=== PATIENT | female | born 1980 | race African-American/Black ===

== ENCOUNTER 2016-08-22 01:43 | Emergency (ER) | payer OTHER ==
[2016-08-22] MEDS ORDERED: ACETAMINOPHEN 500 MG TABLET (FP) PO ONE (02:13)
--- NOTE | 2016-08-22 02:13 | PDOC ---
History of Present Illness - General History Source: Patient Exam Limitations: No Limitations - History of Present Illness Initial Comments: 08/22/16 03:05 The patient is a 36 year old female (2 months ) with significant past medical history of anxiety, hypertension, hyperlipidemia, anemia, asthma, lupus and fibromyalgia, muscle spasms, RA who presents to the ED with s/p slip and fall few hours prior to arrival. Patient reports she was in the shower around 10pm, when she slip and fell, landing on her left side. She has complaints of left arm and left hip pain. She denies head trauma and LOC. Just prior to presentation, she felt something wet and when she checked, she noted that she was bleeding. Patient wiped again and noted to be bleeding more with a small blot clot. Patient reports some mild abdominal cramping. She denies nausea , vomiting, and diarrhea. She has an appointment with her [facility] at 10am in the morning. The patient denies fever, chills, cough, SOB, chest pain, and palpitations. Allergies: ibuprofen, penicillins, IVP DYE Social History: No alcohol, tobacco, or drug use reported. Past Surgical History: 2 c-sections, ovarian cysts removal, otoscopic right knee surgery PCP: Dr. Erlin Zuniga <Rosanna Pickard - Last Filed: 08/22/16 03:05> - General History Source: Patient <Kieran Ramsay - Last Filed: 08/22/16 19:19> - General Chief Complaint: Injury Stated Complaint: FALL Time Seen by Provider: 08/22/16 02:13 Past History <Rosanna Pickard - Last Filed: 08/22/16 03:05> - Past Medical History Anemia: Yes Asthma: Yes Cancer: No Cardiac Disorders: No CVA: No COPD: No CHF: No Dementia: No Diabetes: No GI Disorders: No Disorders: No HTN: Yes Hypercholesterolemia: No Liver Disease: No Suicide Attempt (Hx): No Seizures: No Thyroid Disease: No Other medical history: lupus RA fibromylia - Surgical History Abdominal Surgery: Yes (laproscopy) Appendectomy: No Cardiac Surgery: No Cholecystectomy: No Lung Surgery: No Neurologic Surgery: No Orthopedic Surgery: No - Family Disease History Family Disease History: Heart Disease: Grandparents, Father - Reproductive History (#): 5 Para: 2 Cervical CA: No Dysfunctional Uterine Bleeding: No Ectopic : No Endometrial CA: No Polycystic Ovaries: No Therapeutic (s) & number: No Tubal Ligation: No Spontaneous : 3 - Immunization History Td Vaccination: Yes Immunization Up to Date: Yes - Psycho/Social/Smoking Cessation Hx Anxiety: Yes Suicidal Ideation: No Smoking Status: Yes Smoking History: Never smoked Years of Tobacco Use: 15 Have you smoked in the past 12 months: Yes Number of Cigarettes Smoked Daily: 0 If you are a former smoker, when did you quit?: PT REFUSED BOOKLET Cigars Per Day: 0 Information on smoking cessation initiated: No 'Breaking Loose' booklet given: 03/13/15 Hx Alcohol Use: No Drug/Substance Use Hx: No Substance Use Type: None Hx Substance Use Treatment: No <Kieran Ramsay - Last Filed: 08/22/16 19:19> - Past Medical History Allergies/Adverse Reactions: Allergies Allergy/AdvReac Type Severity Reaction Status Date / Time ibuprofen Allergy Mild abd pain, Verified 08/22/16 01:47 vomitting Shellfish AdvReac Intermediate Nausea Verified 08/22/16 01:47 Penicillins AdvReac Mild Vomiting Verified 08/22/16 01:47 BEE STING Allergy SWELLING, Uncoded 08/22/16 01:47 RASH, ITCHING, CHILLS IVP DYE Allergy Uncoded 08/22/16 01:47 SEASALT Allergy Hives Uncoded 08/22/16 01:47 Home Medications: Ambulatory Orders Hydroxychloroquine So4 [Plaquenil -] 200 mg PO DAILY 03/14/15 Review of Systems - Review of Systems Able to Perform ROS?: Yes Comments:: 08/22/16 03:05 CONSTITUTIONAL: Absent: fever, no chills, no fatigue EYES: Absent: visual changes ENT: Absent: ear pain, no sore throat CARDIOVASCULAR: Absent: chest pain, no palpitations RESPIRATORY: Absent: cough, no SOB GI: +abdominal cramping Absent: no nausea, no vomiting, no constipation, no diarrhea GENITOURINARY: +vaginal bleeding Absent: dysuria, no frequency, no hematuria MUSCULOSKELETAL: +left arm pain, left hip pain SKIN: Absent: rash NEURO: Absent: headache <BharratRosnana - Last Filed: 08/22/16 03:05> *Physical Exam - Vital Signs Last Vital Signs Temp Pulse Resp BP Pulse Ox 98.6 F 86 20 122/69 100 08/22/16 01:47 08/22/16 01:47 08/22/16 01:47 08/22/16 01:47 08/22/16 01:47 - Physical Exam Comments: 08/22/16 03:06 GENERAL: Well-appearing, well-nourished. No apparent distress. HEENT: Normocephalic, atraumatic. No racoon or schwartz sign. PERRL, EOM intact. No hemotympanum. CARDIOVASCULAR: Normal S1, S2. Regular rate and rhythm. PULMONARY: Clear to auscultation bilaterally. ABDOMEN: Soft, obese, non-tender. No guarding or rebound. PELVIC: Deferred to ultrasound, which revealed One live IUP 8 weeks 1 day. heart tone is 176bpm. EXTREMITIES: Normal ROM in all four extremities. No gross deformities. MUSCULOSKELETAL: No bony deformities of left hip. SKIN: Warm, dry. No rash NEUROLOGICAL: No focal neurological deficits. <Rosanna Pickard - Last Filed: 08/22/16 03:05> - Vital Signs Last Vital Signs Temp Pulse Resp BP Pulse Ox 98.6 F 86 20 122/69 100 08/22/16 01:47 08/22/16 01:47 08/22/16 01:47 08/22/16 01:47 08/22/16 01:47 <Kieran Ramsay - Last Filed: 08/22/16 19:19> ED Treatment Course - LABORATORY CBC & Chemistry Diagram: 08/22/16 02:10 08/22/16 02:10 - ADDITIONAL ORDERS Additional order review: 08/22/16 02:10 RBC 4.17 MCV 91.9 MCHC 32.5 RDW 13.5 MPV 7.5 Neutrophils % 74.6 D Lymphocytes % 18.1 D Monocytes % 5.9 Eosinophils % 0.7 Basophils % 0.7 - Medications Given in the ED: ED Medications Discontinued Medications Generic Name Dose Route Start Last Admin Trade Name Freq PRN Reason Stop Dose Admin Acetaminophen 1,000 mg 08/22/16 02:13 08/22/16 02:24 Tylenol - PO 08/22/16 02:14 1,000 mg ONCE ONE Administration <Rosanna Pickard - Last Filed: 08/22/16 03:05> - LABORATORY CBC & Chemistry Diagram: 08/22/16 02:10 08/22/16 02:10 - RADIOLOGY Radiology Studies Ordered: Category Date Time Status <14WKS US [US] Stat Ultrasound 08/22/16 01:49 Taken <Kieran Ramsay - Last Filed: 08/22/16 19:19> Medical Decision Making - Medical Decision Making 08/22/16 03:17 Dr. Ramsay: The scribe's documentation has been prepared under my direction and personally reviewed by me in its entirery. I confirm that the note above accurately reflects all work, treatment, procedures, and medical decision making performed by me. Patient is s/p fall in shower last night. Pt c/o left hip pain and lower abd cramping. pt approx 8 weeks. US shows IUP at 8 weeks. good fht. Pt to be discharged <Kieran Ramsay - Last Filed: 08/22/16 19:19> *DC/Admit/Observation/Transfer - Attestations Scribe Attestion: 08/22/16 03:06 Documentation prepared by Rosanna Pickard, acting as medical device for Kieran Ramsay MD <Rosanna Pickard - Last Filed: 08/22/16 03:05> - Discharge Dispostion Admit: No <Kieran Ramsay - Last Filed: 08/22/16 19:19> Diagnosis at time of Disposition: Fall Qualifiers: Encounter type: initial encounter Qualified Code(s): W19.XXXA - Unspecified fall, initial encounter Contusion of left hip Qualifiers: Encounter type: initial encounter Qualified Code(s): S70.02XA - Contusion of left hip, initial encounter - Discharge Dispostion Disposition: HOME Condition at time of disposition: Stable - Referrals Referrals: Erlin Zuniga MD [Primary Care Provider] - - Patient Instructions Printed Discharge Instructions: DI for Contusion, How to Prevent Falls Additional Instructions: Please follow up with your normal scheduled appointment today. Rest and ice area of injury. Tylenol for pain every 6 hours
[2016-08-22 02:20] LABS: BASOPHIL 0.7 % (0-2.0); EOSINOPHIL 0.7 % (0-4.5); MCH 29.9 pg (25.7-33.7); MCHC 32.5 g/dl (32.0-36.0); MEAN CELL VOLUME 91.9 fl (80-96); MEAN PLT VOLUME 7.5 fl (7.5-11.1); NEUTROPHILS 74.6 % (42.8-82.8); PLATELET COUNT 377 K/MM3 (134-434); RDW 13.5 % (11.6-15.6); WHITE BLOOD COUNT 16.1 K/mm3 (4.0-10.0)
[2016-08-22] MEDS ORDERED: ACETAMINOPHEN 325 MG TABLET (FP) ONE (02:25)
[2016-08-22 02:47] VITALS: BP 122/69; PULSE 86; TEMP 98.6; BMI 41.8
[2016-08-22 02:50] LABS: ANION GAP 8 (8-16); BILIRUBIN,TOTAL 0.3 mg/dL (0.2-1.0); CALCIUM 8.7 mg/dL (8.5-10.1); CO2 25 mmol/L (21-32); CREATININE 0.5 mg/dL (0.55-1.02); GLUCOSE,RANDOM 98 mg/dL (74-106); SGOT/AST 11 U/L (15-37); SGPT/ALT 17 U/L (12-78); TOT PROT 6.3 g/dl (6.4-8.2)
[2016-08-22 03:07] LABS: ALK PHOS 90 U/L (45-117)
== END 2016-08-22 03:31 | disposition home or self-care (01) ==
LOC: JER 01:43
DX: O99.89 Other specified diseases and conditions complicating pregnancy, childbirth and the puerperium (principal); S70.02XA Contusion of left hip, initial encounter; W16.212A Fall in (into) filled bathtub causing other injury, initial encounter; Y93.E1 Activity, personal bathing and showering; Y92.031 Bathroom in apartment as the place of occurrence of the external cause; Z3A.00 Weeks of gestation of pregnancy not specified
CPT/HCPCS: 36415; 76801-TC; 80053; 84702; 85025; 86850; 86870; 86900; 86901; 86902; 99281-25

== ENCOUNTER 2018-01-03 14:15 | Emergency (ER) | payer OTHER ==
[2018-01-03 14:31] VITALS: BMI 44.9
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
--- NOTE | 2018-01-03 15:23 | PDOC ---
Attending Attestation - Resident Resident Name: Valentin White - ED Attending Attestation I have performed the following: I have examined & evaluated the patient, The case was reviewed & discussed with the resident, I agree w/resident's findings & plan, Exceptions are as noted - HPI HPI: 01/03/18 15:07 37y F hx of fibromyalgia htn, presents with complaint of R shoulder pain. Pt states she fell 2 weeks ago due to a mechanical fall, struck her R arm on the wall, she has been having pain since. pt denies any numbness/tingling/weakness , neck pain, fever/chills, cp, sob, palpitations. on exam pt has mildly tender L shoulder with pain on active ROM but minimal on passive ROM suspect the pts sypmsm secondary to contusion/possibly burstitis will give percocet, will ck shoulder xray anticipate pmd fu return precautions were discussed - Physicial Exam PE: 01/03/18 16:18 see above - Medical Decision Making 01/03/18 16:18 shoulder xray negative will dc with pm dfu return precautions were discussed 01/03/18 16:38 pt changed her pharmacy - originally sent to [facility], then called and spoke to [facility] who cancelled rx, then pt mentioned [facility] [address], rx sent there was cancelled. and finally sent to [facility]
[2018-01-03 16:55] VITALS: BP 130/85; PULSE 82; TEMP 98.3
== END 2018-01-03 16:55 | disposition home or self-care (01) ==
LOC: JER 14:15
DX: M25.511 Pain in right shoulder (principal); M54.6 Pain in thoracic spine; W03.XXXA Other fall on same level due to collision with another person, initial encounter; Y93.89 Activity, other specified; Y92.038 Other place in apartment as the place of occurrence of the external cause; Y99.8 Other external cause status; Y07.01 Husband, perpetrator of maltreatment and neglect; I10 Essential (primary) hypertension; E78.5 Hyperlipidemia, unspecified; E78.00 Pure hypercholesterolemia, unspecified; M32.9 Systemic lupus erythematosus, unspecified; M79.7 Fibromyalgia; F17.210 Nicotine dependence, cigarettes, uncomplicated
CPT/HCPCS: 73030-TC-RT-FY; 99283-25

== ENCOUNTER 2020-03-04 11:41 | Inpatient (IN) | payer OTHER ==
--- NOTE | 2020-03-04 12:35 | BHS.RME ---
Substance Use & Tx History - Substance Use History Heroin Substance amount: 1-2 bags Frequency of use: Daily Substance route: Inhalation (ex: sniffing or snorting) Date of Last Use: 03/03/20 Cocaine-Crack Substance amount: $30-40 Frequency of use: Daily Substance route: Smoking Date of Last Use: 03/03/20 Nicotine Substance amount: 1/2 pack Frequency of use: Daily Substance route: Smoking Date of Last Use: 03/04/20 Physical/Psych/Mental Status - Behavior General Behavior: Increased activity (restlessness, agitation) Eye Contact: Normal - Cooperativeness Cooperativeness: Cooperative - Thinking Thought Processes: Tight, Logical, Goal Directed - Physical Health Problems Is patient presently having any pain?: No Does patient presently have any injuries (include location): No Does patient currently have a fever: No Is patient : No COWS - Scale Resting Pulse: 0= [place] 80 or Below Sweatin= Chills/Flushing Restless Observation: 1= Difficult to Sit Still Pupil Size: 1= Pupils >than Normal Bone or Joint Aches: 2= Severe Diffuse Aches Runny Nose/ Eye Tearin= None GI Upset > 30mins: 2= Nausea/Diarrhea Tremor Observation: 1= Tremor Nichols, Not Seen Yawning Observation: 1= 1-2x During Session Anxiety or Irritability: 1=Feels Anxious/Irritable Goose Flesh Skin: 3=Piloerection COWS Score: 13
--- NOTE | 2020-03-04 14:46 | HP ---
COWS - Scale Resting Pulse: 0= MT 80 or Below Sweatin= No chills or Flushing Restless Observation: 1= Difficult to Sit Still Pupil Size: 0= Normal to Room Light Bone or Joint Aches: 4=Acute Joint/Muscle Pain Runny Nose/ Eye Tearin= Nasal Congestion GI Upset > 30mins: 2= Nausea/Diarrhea Tremor Observation: 0= None Yawning Observation: 1= 1-2x During Session Anxiety or Irritability: 2=Irritable/Anxious Goose Flesh Skin: 3=Piloerection COWS Score: 14 CIWA Score - Admission Criteria OASAS Guidelines: Admission for Medically Managed Detox: Requires at least one of the followin. CIWA greater than 12 2. Seizures within the past 24 hours 3. Delirium tremens within the past 24 hours 4. Hallucinations within the past 24 hours 5. Acute intervention needed for co occurring medical disorder 6. Acute intervention needed for co occurring psychiatric disorder 7. Severe withdrawal that cannot be handled at a lower level of care (continued vomiting, continued diarrhea, abnormal vital signs) requiring intravenous medication and/or fluids 8. Admitting History and Physical - Admission Chief Complaint: " I want to get clean from heroin." History of Present Illness: Patient is a 40 y/o F who presents to [facility] for detox from Heroin. Patient endorses she uses 1-2 bags of heroin per day. Age of first use was 39 years old. She snorts the heroin. Last use was 1 am this morning. Also uses crack cocaine 60 dollars worth daily. Last use of crack was also 1 am. Furthermore, patient states she drinks ~ two 12 oz beers daily along with 1 nip of hard liquor. Of note, patient endorses she took " half a pill" of her friend's suboxone to help her wean off of heroin. PMH Fibromyalgia, SLE, RA, HTN, Bursitis (R and L knee, and shoulders), DVT s/p C Section. SocialHx- Heroin use per HPI. Also drinks two 12 oz beers and 1 nip daily. 60 dollars of crack per day, smokes 10 cigarettes daily. 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: No: Alzheimer's, CVA, Dementia, Migraine, Multiple Sclerosis, Peripheral Neuropathy, Parkinson's, Seizure, Syncope, TIA, Vertigo, Other Cardiovascular: Yes: HTN Pulmonary: Yes: COPD Gastrointestinal: No: Ascites, Cancer, Constipation, Crohn's Disease, Diverticulosis, Esophageal Varices Hepatobiliary: No: Cirrhosis, Cholecystitis, Hepatitis A, Hepatitis B, Hepatitis C Renal/: No: Renal Failure, Renal Inusuff, BPH, Cancer, Hematuria, Hemodialysis, Neurogenic Bladder, Renal Calculi, UTI, Other Reproductive: No: Ectopic , Endometriosis, Fibroids, PID, Polycystic Ovary Syndrome, Postmenopausal, Other ...LMP: 12/07/13 Heme/Onc: Yes: Anemia Infectious Disease: No: AIDS, HIV Psych: Yes: Anxiety, Depression, Other (PTSD) Musculoskeletal: Yes: Bursitis (2 shoulders and both knees) Rheumatology: Yes: Lupus, Rheumatoid Arthritis Endocrine: No: Diabetes Insipidus, Diabetes Mellitus, Hyperthyroidism, Hypothyroidism - Past Surgical History Additional Past Surgical History: Ovarian cystectomy, Right knee arthroscopy, " surgery for cyst on tailbone", 3 C Sections. - Smoking History Smoking history: Current every day smoker Have you smoked in the past 12 months: Yes Aproximately how many cigarettes per day: 10 - Alcohol/Substance Use Hx Alcohol Use: Yes History of Substance Use: reports: Heroin Admission [facility] Allergies/Adverse Reactions: Allergies Allergy/AdvReac Type Severity Reaction Status Date / Time ibuprofen Allergy Mild abd pain, Verified 03/04/20 16:21 vomitting Shellfish AdvReac Intermediate Nausea Verified 03/04/20 16:21 Penicillins AdvReac Mild Vomiting Verified 03/04/20 16:21 BEE STING Allergy SWELLING, Uncoded 03/04/20 16:21 RASH, ITCHING, CHILLS IVP DYE Allergy Uncoded 03/04/20 16:21 SEASALT Allergy Hives Uncoded 03/04/20 16:21 - Ebola screening Have you traveled outside of the country in the last 21 days: No Have you had contact with anyone from an Ebola affected area: No Have you been sick,other than usual withdrawal symptoms: No Do you have a fever: No - Review of Systems Constitutional: No Symptoms Reported EENT: reports: Blurred Vision. denies: Double Vision, Eye Pain, Recent change in vision, Ear Pain, Hearing Loss Respiratory: denies: Cough, Orthopnea, Shortness of Breath, SOB with Exertion, Wheezing Cardiac: denies: Chest Pain, Lightheadedness, Palpitations, Syncope GI: denies: Abdominal Distended, Abd. Pain w/ defecation, Blood Streaked Bowels, Constipated, Diarrhea : denies: Burning, Dysuria, Discharge, Hematuria Musculoskeletal: reports: Back Pain, Joint Pain Integumentary: denies: Bruising Neuro: denies: Numbness, Paresthesia, Seizure, Tingling, Tremors Endocrine: denies: Excessive Sweating, Intolerance to Cold, Intolerance to Heat Hematology: reports: Anemia Psychiatric: reports: Orientated x3 Patient History - Patient Medical History Hx Anemia: Yes Hx Asthma: Yes Hx Chronic Obstructive Pulmonary Disease (COPD): No Hx Cancer: No Hx Cardiac Disorders: No Hx Congestive Heart Failure: No Hx Hypertension: Yes Hx Hypercholesterolemia: No Hx Pacemaker: No HX Cerebrovascular Accident: No Hx Seizures: No Hx Dementia: No Hx Diabetes: No Hx Gastrointestinal Disorders: No Hx Liver Disease: No Hx Genitourinary Disorders: No Hx Renal Disease (ESRD): No Hx Thyroid Disease: No Hx Human Immunodeficiency Virus (HIV): No Hx Hepatitis C: No Hx Depression: Yes Hx Suicide Attempt: No - Patient Surgical History Past Surgical History: Yes Hx Neurologic Surgery: No Hx Cataract Extraction: No Hx Cardiac Surgery: No Hx Lung Surgery: No Hx Breast Surgery: No Hx Breast Biopsy: No Hx Abdominal Surgery: Yes (laproscopy) Hx Appendectomy: No Hx Cholecystectomy: No Hx Genitourinary Surgery: No Hx Section: Yes (x2) Hx Orthopedic Surgery: No Hx Hysterectomy: No Anesthesia Reaction: No - Reproductive History Last Menstrual Period: 12/07/13 - Smoking Cessation Smoking history: Current every day smoker Have you smoked in the past 12 months: Yes Aproximately how many cigarettes per day: 10 Cigars Per Day: 0 Hx Chewing Tobacco Use: No Initiated information on smoking cessation: Yes 'Breaking Loose' booklet given: 03/04/20 - Substances abused Cocaine Substance route: Smoking Frequency: 3-6 times per week Amount used: 60 dollars Age of first use: 20 Date of last use: 03/04/20 Heroin Substance route: Inhalation Frequency: Daily Amount used: 2 to 3 bags Age of first use: 39 Date of last use: 03/04/20 Admission Physical Exam [facility] - Physical General Appearance: Yes: Within Normal Limits HEENTM: Yes: EOMI, Hearing grossly Normal, Normocephalic, Normal Voice Respiratory: Yes: Within Normal Limits, Chest Non-Tender, Lungs Clear Cardiology: Yes: Regular Rhythm, Regular Rate, S1, S2 Abdominal: Yes: Within Normal Limits, Normal Bowel Sounds, Non Tender, Flat, Soft Musculoskeletal: Yes: Within Normal Limits, full range of Motion Extremities: Yes: Within Normal Limits, Normal Inspection, Non-Tender Neurological: Yes: Within Normal Limits, paper counter II-XII NML intact, Fully Oriented, Alert, Motor Strength 5/5 Integumentary: Yes: Within Normal Limits, Normal Color, Dry, Warm - Diagnostic (1) Heroin abuse Current Visit: Yes Status: Acute (2) SLE (systemic lupus erythematosus related syndrome) Current Visit: Yes Status: Chronic (3) Rheumatoid arthritis Current Visit: Yes Status: Chronic (4) PTSD (post-traumatic stress disorder) Current Visit: Yes Status: Chronic (5) HTN (hypertension) Current Visit: Yes Status: Chronic (6) Fibromyalgia Current Visit: Yes Status: Chronic (7) Alcohol abuse Current Visit: Yes Status: Acute Cleared for Admission [facility] - Detox or Rehab [facility] Level of Care: Medically Managed Detox Regimen/Protocol: Methadone Breathalyzer - Breathalyzer Breathalyzer: 0 Urine Drug Screen - Test Device Lot number: [id number] Expiration date: 04/11/21 - Control Is test valid?: Yes - Results Drug screen NEGATIVE: No Urine drug screen results: DIAMOND-Cocaine, MOP-Opiates, BZO-Benzodiazepines, BUP- Suboxone Inpatient Rehab Admission - Rehab Decision to Admit Inpatient rehab admission?: No
[2020-03-04] MEDS ORDERED: MENTHOL/PHENOL 1 EACH UD MM PRN (15:14)
[2020-03-04] MEDS ORDERED: BISMUTH SUBSALICYLATE 524 MG/30 ML UD PO PRN (15:14)
[2020-03-04] MEDS ORDERED: ACETAMINOPHEN 325 MG TABLET (FP) PO PRN ×2 (15:14)
[2020-03-04] MEDS ORDERED: MAGNESIUM HYDROX 2400MG/30ML ORAL SUSPENSION 30 ML CUP PO PRN (15:14)
[2020-03-04] MEDS ORDERED: MAG HYDROX/AL HYDROX/SIMETH 30 ML UNIT-DOSE CUP PO PRN (15:14)
[2020-03-04] MEDS ORDERED: METHOCARBAMOL 500 MG TABLET PO PRN (15:14)
[2020-03-04] MEDS ORDERED: MAGNESIUM CITRATE 300 ML BOTTLE PO PRN (15:14)
[2020-03-04] MEDS ORDERED: NICOTINE POLACRILEX 2 MG GUM BUC PRN (15:14)
[2020-03-04] MEDS ORDERED: IBUPROFEN 400 MG TABLET (FP) PO PRN (15:14)
[2020-03-04] MEDS ORDERED: ONDANSETRON *ODT* 4 MG TABLET SL ONE (15:14)
[2020-03-04] MEDS ORDERED: PRENATAL VITAMINS W/ FOLIC ACID TABLET (FP) PO SCH (15:15)
[2020-03-04] MEDS ORDERED: NICOTINE 7 MG/24 HOURS TOPICAL PATCH TD SCH (15:15)
[2020-03-04] MEDS ORDERED: METHADONE HCL 10 MG TABLET (FOR DETOX USE ONLY) PO ONE (15:19)
[2020-03-04] MEDS ORDERED: cloNIDine HCL 0.1 MG TABLET PO PRN (15:19)
[2020-03-04 16:44] VITALS: BP 129/84; PULSE 70; TEMP 97.7; BMI 39.9
[2020-03-04 16:59] LABS: HEMATOCRIT 37.8 % (32.4-45.2); HEMOGLOBIN 12.6 GM/dL (10.7-15.3); MCH 30.2 pg (25.7-33.7); MCHC 33.4 g/dl (32.0-36.0); MEAN CELL VOLUME 90.6 fl (80-96); MEAN PLT VOLUME 8.3 fl (7.5-11.1); PLATELET COUNT 360 K/MM3 (134-434); RBC 4.18 M/mm3 (3.60-5.2); RDW 14.7 % (11.6-15.6); WHITE BLOOD COUNT 8.1 K/mm3 (4.0-10.0)
[2020-03-04] MEDS ORDERED: TIZANIDINE HCL 4 MG TABLET PO PRN (17:00)
[2020-03-04 17:32] LABS: ALBUMIN 3.1 g/dl (3.4-5.0); BILIRUBIN,TOTAL 0.4 mg/dL (0.2-1); BLOOD UREA NITROGEN 10.6 mg/dL (7-18); CALCIUM 8.9 mg/dL (8.5-10.1); CREATININE 0.7 mg/dL (0.55-1.3); POTASSIUM 4.2 mmol/L (3.5-5.1); TOT PROT 6.7 g/dl (6.4-8.2)
[2020-03-04] MEDS ORDERED: hydrOXYzine PAMOATE 25 MG CAPSULE (FP) PO SCH (18:00)
--- NOTE | 2020-03-04 19:38 | DS ---
[facility] Detox Discharge Summary Admission Date: 03/04/20 Discharge Date: 03/04/20 - History Present History: Alcohol Dependence, Cocaine Dependence, Opioid Dependence Additional Comments: Patient left the unit before the provider could see/examine her. Admission should be aborted. Pertinent Past History: History of SLE, HTN, DVT, S/P , Anemia, anxiety, depression, Alcohol, Heroin, Crack and nicotine use disorder. - Physical Exam Results Vital Signs: Vital Signs Temperature 97.7 F 03/04/20 16:37 Pulse Rate 70 03/04/20 16:37 Respiratory Rate 18 03/04/20 16:37 Blood Pressure 129/84 03/04/20 16:37 O2 Sat by Pulse Oximetry (%) Vital Signs 03/04/20 16:37 Temperature 97.7 F Pulse Rate 70 Respiratory 18 Rate Blood Pressure 129/84 Laboratory Last Values WBC 8.1 K/mm3 (4.0-10.0) 03/04/20 15:00 RBC 4.18 M/mm3 (3.60-5.2) 03/04/20 15:00 Hgb 12.6 GM/dL (10.7-15.3) 03/04/20 15:00 Hct 37.8 % (32.4-45.2) 03/04/20 15:00 MCV 90.6 fl (80-96) 03/04/20 15:00 MCH 30.2 pg (25.7-33.7) 03/04/20 15:00 MCHC 33.4 g/dl (32.0-36.0) 03/04/20 15:00 RDW 14.7 % (11.6-15.6) 03/04/20 15:00 Plt Count 360 K/MM3 (134-434) 03/04/20 15:00 MPV 8.3 fl (7.5-11.1) D 03/04/20 15:00 Sodium 141 mmol/L (136-145) 03/04/20 15:00 Potassium 4.2 mmol/L (3.5-5.1) 03/04/20 15:00 Chloride 107 mmol/L (98-107) 03/04/20 15:00 Carbon Dioxide 29 mmol/L (21-32) 03/04/20 15:00 Anion Gap 5 MMOL/L (8-16) L 03/04/20 15:00 BUN 10.6 mg/dL (7-18) 03/04/20 15:00 Creatinine 0.7 mg/dL (0.55-1.3) 03/04/20 15:00 Est GFR (CKD-EPI)AfAm 124.73 03/04/20 15:00 Est GFR (CKD-EPI)NonAf 107.62 03/04/20 15:00 Random Glucose 104 mg/dL (74-106) 03/04/20 15:00 Calcium 8.9 mg/dL (8.5-10.1) 03/04/20 15:00 Total Bilirubin 0.4 mg/dL (0.2-1) 03/04/20 15:00 AST 16 U/L (15-37) 03/04/20 15:00 ALT 15 U/L (13-61) 03/04/20 15:00 Alkaline Phosphatase 91 U/L (45-117) 03/04/20 15:00 Total Protein 6.7 g/dl (6.4-8.2) 03/04/20 15:00 Albumin 3.1 g/dl (3.4-5.0) L 03/04/20 15:00 Syphilis Serology Non-reactive (NONREACTIVE) 03/04/20 15:00 Labs noted. Pertinent Admission Physical Exam Findings: Withdrawal symptoms. - Medication Discharge Medications: Ambulatory Orders RX: Hydroxychloroquine So4 [Plaquenil -] 100 mg PO BID 03/14/15 Duloxetine HCl [Cymbalta] 30 mg PO DAILY 01/03/18 Lisinopril/Hydrochlorothiazide [Lisinopril-Hctz 10-12.5 mg Tab] 1 each PO DAILY 01/03/18 RX: Tizanidine HCl 4 mg PO PRN 01/03/18 RX: oxyCODONE HCL [Oxycodone HCl] 15 mg PO TID PRN 01/03/18 - Diagnosis (1) Alcohol abuse Current Visit: Yes Status: Acute (2) Heroin abuse Current Visit: Yes Status: Acute (3) Fibromyalgia Current Visit: Yes Status: Chronic (4) HTN (hypertension) Current Visit: Yes Status: Chronic (5) SLE (systemic lupus erythematosus related syndrome) Current Visit: Yes Status: Chronic - AMA Did Patient Leave Against Medical Advice: Yes
[2020-03-04] MEDS ORDERED: THIAMINE HCL 100 MG TABLET (FP) PO SCH (22:00)
[2020-03-04] MEDS ORDERED: HYDROXYCHLOROQUINE SO4 200 MG TABLET (FP) PO SCH (22:00)
[2020-03-04] MEDS ORDERED: MELATONIN 5 MG TABLETS PO SCH (22:00)
[2020-03-05] MEDS ORDERED: METHADONE (DETOX) 20 MG, METHADONE (DETOX) 5 MG PO ONE (10:00)
[2020-03-05] MEDS ORDERED: PATIENT'S OWN MEDICATION (NON-FORMULARY) (Lisinopril/Hydrochlorothiazide [Lisinopril-Hctz PO SCH (10:00)
[2020-03-05] MEDS ORDERED: LISINOPRIL 10 MG TABLET PO SCH (10:00)
[2020-03-05] MEDS ORDERED: HYDROCHLOROTHIAZIDE 12.5 MG CAPSULE (FP) PO SCH (10:00)
[2020-03-06] MEDS ORDERED: METHADONE HCL 10 MG TABLET (FOR DETOX USE ONLY) PO ONE (10:00)
--- NOTE | 2020-03-07 08:10 | PN ---
Teaching Attending Note Name of Resident: Jovanny Van ATTENDING PHYSICIAN STATEMENT I saw and evaluated the patient. I reviewed the resident's note and discussed the case with the resident. I agree with the resident's findings and plan as documented. SUBJECTIVE: OBJECTIVE: ASSESSMENT AND PLAN: Heroin use disorder Admit for detox
[2020-03-07] MEDS ORDERED: METHADONE (DETOX) 10 MG, METHADONE (DETOX) 5 MG PO ONE (10:00)
[2020-03-08] MEDS ORDERED: METHADONE HCL 10 MG TABLET (FOR DETOX USE ONLY) PO ONE (10:00)
[2020-03-09] MEDS ORDERED: METHADONE HCL 5 MG TABLET (FOR DETOX USE ONLY) PO ONE (06:00)
== END 2020-03-04 18:08 | disposition left against medical advice (07) | DRG 770 ==
LOC: YASAS 11:41 → Y3N 15:28
PROVIDERS: ADMIT Allergy & Immunology; ATTEND Allergy & Immunology
PROC: HZ2ZZZZ Detoxification Services for Substance Abuse Treatment (ICD-10-PCS; principal; 2020-03-04)
DX: F11.23 Opioid dependence with withdrawal (principal); F10.20 Alcohol dependence, uncomplicated; F14.20 Cocaine dependence, uncomplicated; F17.210 Nicotine dependence, cigarettes, uncomplicated; F43.10 Post-traumatic stress disorder, unspecified; F41.9 Anxiety disorder, unspecified; F32.9 Major depressive disorder, single episode, unspecified; I10 Essential (primary) hypertension; J45.909 Unspecified asthma, uncomplicated; M32.9 Systemic lupus erythematosus, unspecified; M06.9 Rheumatoid arthritis, unspecified; Z91.030 Bee allergy status; Z88.0 Allergy status to penicillin; Z88.6 Allergy status to analgesic agent; Z91.041 Radiographic dye allergy status; Z91.018 Allergy to other foods; Z90.721 Acquired absence of ovaries, unilateral; Z98.890 Other specified postprocedural states
CPT/HCPCS: 36415; 80053; 81025; 85027; 86780; U0003

== ENCOUNTER 2022-09-29 20:03 | Inpatient (IN) | payer OTHER ==
[2022-09-29 20:56] VITALS: BMI 26.1
[2022-09-29] MEDS ORDERED: ACETAMINOPHEN 325 MG TABLET (FP) PO PRN (21:55)
[2022-09-29] MEDS ORDERED: MAGNESIUM HYDROX 2400MG/30ML ORAL SUSPENSION 30 ML CUP PO PRN (21:55)
[2022-09-29] MEDS ORDERED: ONDANSETRON *ODT* 4 MG TABLET SL PRN (21:55)
[2022-09-29] MEDS ORDERED: MAG HYDROX/AL HYDROX/SIMETH 30 ML UNIT-DOSE CUP PO PRN (21:55)
[2022-09-29] MEDS ORDERED: NALOXONE HCL (KLOXXADO) 8 MG SPRAY NS PRN (21:55)
[2022-09-29] MEDS ORDERED: BENZOCAINE/MENTHOL (CHLORASEPTIC ) LOZENGE MM PRN (21:55)
[2022-09-29] MEDS ORDERED: POLYETHYLENE GLYCOL (HEALTHYLAX) 3350 17 GM PACKET PO PRN (21:55)
[2022-09-29] MEDS ORDERED: DICYCLOMINE HCL 10 MG CAPSULE PO PRN (21:55)
[2022-09-29] MEDS ORDERED: LOPERAMIDE HCL 2 MG CAPSULE PO PRN (21:55)
[2022-09-29] MEDS ORDERED: MELATONIN 5 MG TABLETS PO SCH (22:00)
[2022-09-29] MEDS: THIAMINE HCL 100 MG TABLET (FP) PO SCH (22:14)
[2022-09-29] MEDS ORDERED: ACETAMINOPHEN 325 MG TABLET (FP) ONE (22:24)
[2022-09-29] MEDS: ACETAMINOPHEN 325 MG TABLET (FP) PO PRN (22:27)
[2022-09-29] MEDS: METHOCARBAMOL 500 MG TABLET PO PRN (23:14)
[2022-09-30] MEDS: ACETAMINOPHEN 325 MG TABLET (FP) PO PRN ×3 (06:59→22:52)
[2022-09-30] MEDS: METHOCARBAMOL 500 MG TABLET PO PRN ×3 (06:59→22:50)
[2022-09-30] MEDS: hydrOXYzine PAMOATE 25 MG CAPSULE (FP) PO PRN ×4 (06:59→22:49)
[2022-09-30] MEDS ORDERED: methaDONE HCL 10 MG TABLET PO ONE (10:07)
[2022-09-30] MEDS: NICOTINE 21 MG/24 HOURS TOPICAL PATCH TD SCH (10:13)
[2022-09-30] MEDS: PRENATAL VITAMINS W/ FOLIC ACID TABLET (FP) PO SCH (10:16)
[2022-09-30] MEDS: NICOTINE POLACRILEX 2 MG GUM BUC PRN ×2 (10:17→12:26)
[2022-09-30] MEDS ORDERED: MIRTAZAPINE 15 MG TABLET (FP) PO SCH (22:00)
[2022-09-30] MEDS: THIAMINE HCL 100 MG TABLET (FP) PO SCH (22:48)
[2022-10-01] MEDS: ACETAMINOPHEN 325 MG TABLET (FP) PO PRN (09:53)
[2022-10-01] MEDS: hydrOXYzine PAMOATE 25 MG CAPSULE (FP) PO PRN (09:53)
[2022-10-01] MEDS: METHOCARBAMOL 500 MG TABLET PO PRN (09:53)
[2022-10-01 09:58] VITALS: BP 120/94; PULSE 104; RESP 20; TEMP 96.9
[2022-10-01] MEDS: NICOTINE 21 MG/24 HOURS TOPICAL PATCH TD SCH (09:59)
[2022-10-01] MEDS: PRENATAL VITAMINS W/ FOLIC ACID TABLET (FP) PO SCH (09:59)
[2022-10-01 13:38] LABS: MCH 16.4 pg (25.7-33.7); MCHC 27.8 g/dl (32.0-36.0); MEAN PLT VOLUME 8.4 fl (7.5-11.1); PLATELET COUNT 492 10^3/uL (134-434); RBC 3.89 M/mm3 (3.60-5.2); RDW 20.3 % (11.6-15.6); WHITE BLOOD COUNT 6.1 K/mm3 (4.0-10.0)
[2022-10-01 13:44] LABS: HEMOGLOBIN 6.4 GM/dL (10.7-15.3)
[2022-10-01 13:55] LABS: ALBUMIN 2.5 g/dl (3.4-5.0); BLOOD UREA NITROGEN 13.1 mg/dL (7-18); CALCIUM 8.6 mg/dL (8.5-10.1)
[2022-10-01 13:58] LABS: CREATININE 0.5 mg/dL (0.55-1.3)
[2022-10-01 14:00] LABS: BILIRUBIN,TOTAL 0.2 mg/dL (0.2-1); TOT PROT 5.8 g/dl (6.4-8.2)
== END 2022-10-01 11:57 | disposition home or self-care (01) | DRG 773 ==
LOC: YASAS 20:03 → Y6N 22:34
PROVIDERS: ADMIT Allergy & Immunology; ATTEND Surgery
PROC: HZ2ZZZZ Detoxification Services for Substance Abuse Treatment (ICD-10-PCS; principal; 2022-09-29)
DX: F10.230 Alcohol dependence with withdrawal, uncomplicated (principal); F11.20 Opioid dependence, uncomplicated; F14.20 Cocaine dependence, uncomplicated; F19.282 Other psychoactive substance dependence with psychoactive substance-induced sleep disorder; F19.24 Other psychoactive substance dependence with psychoactive substance-induced mood disorder; F43.10 Post-traumatic stress disorder, unspecified; D64.9 Anemia, unspecified; I10 Essential (primary) hypertension; M32.9 Systemic lupus erythematosus, unspecified; M79.7 Fibromyalgia; M06.9 Rheumatoid arthritis, unspecified; Z62.810 Personal history of physical and sexual abuse in childhood; Z28.310 Unvaccinated for COVID-19; Z28.9 Immunization not carried out for unspecified reason; Z88.0 Allergy status to penicillin; Z88.6 Allergy status to analgesic agent; Z91.018 Allergy to other foods
CPT/HCPCS: 36415; 80053; 81025; 85027; 86780; 87811; 93005; 93010; C9803-CS; U0003; U0005

== ENCOUNTER 2022-10-25 05:38 | Inpatient (IN) | payer OTHER ==
[2022-10-25 05:48] VITALS: BMI 28.8
[2022-10-25] MEDS ORDERED: ACETAMINOPHEN 1000 MG/100 ML BAG IVPB ONE (05:48)
[2022-10-25] MEDS ORDERED: ACETAMINOPHEN INJECTION 100 ML IVPB ONE (05:51)
[2022-10-25] MEDS ORDERED: ONDANSETRON 4 MG/2 ML VIAL IVPUSH ONE (06:24)
[2022-10-25] MEDS ORDERED: morphine CARPU-JECT 2 MG/1 ML DISP.SYRIN IVPUSH ONE ×2 (06:24→08:02)
[2022-10-25] MEDS ORDERED: ONDANSETRON 4 MG/2 ML VIAL ONE (06:28)
[2022-10-25 06:37] LABS: INR 1.12 (0.83-1.09)
[2022-10-25 06:40] LABS: ACTIVATED PTT 32.2 SECONDS (25.2-36.5)
[2022-10-25 06:44] LABS: CALCIUM 8.7 mg/dL (8.5-10.1)
[2022-10-25 06:45] LABS: ALBUMIN 3.2 g/dl (3.4-5.0); BLOOD UREA NITROGEN 12.9 mg/dL (7-18)
[2022-10-25 06:48] LABS: CREATININE 0.4 mg/dL (0.55-1.3)
[2022-10-25 06:50] LABS: BILIRUBIN,TOTAL 0.7 mg/dL (0.2-1)
[2022-10-25 07:02] LABS: BASO % 1.7 % (0-2.0); EOS % 1.7 % (0-4.5); HEMATOCRIT 26.1 % (32.4-45.2); HEMOGLOBIN 7.6 GM/dL (10.7-15.3); LYMPH % 18.5 % (8-40); MCHC 29.1 g/dl (32.0-36.0); MEAN CELL VOLUME 60.2 fl (80-96); MEAN PLT VOLUME 8.3 fl (7.5-11.1); NEUT % 70.1 % (42.8-82.8); PLATELET COUNT 479 10^3/uL (134-434); RBC 4.34 M/mm3 (3.60-5.2); RDW 24.2 % (11.6-15.6); WHITE BLOOD COUNT 7.1 K/mm3 (4.0-10.0)
[2022-10-25 07:08] LABS: MCH 17.5 pg (25.7-33.7)
[2022-10-25] MEDS ORDERED: HYDROmorphone HCl 2 MG/ML VIAL IVPUSH ONE ×2 (08:06→13:46)
[2022-10-25] MEDS ORDERED: HYDROmorphone HCl 2 MG/ML VIAL ONE ×2 (08:07→14:22)
[2022-10-25 09:42] LABS: ANISOCYTOSIS 3+; MACROCYTOSIS 0; TARGET CELLS 1+
[2022-10-25 09:53] LABS: BASO % 3.7 % (0-2.0); EOS % 1.6 % (0-4.5); HEMATOCRIT 26.2 % (32.4-45.2); HEMOGLOBIN 7.7 GM/dL (10.7-15.3); LYMPH % 22.4 % (8-40); MCHC 29.5 g/dl (32.0-36.0); MEAN CELL VOLUME 61.5 fl (80-96); MEAN PLT VOLUME 8.4 fl (7.5-11.1); MONO % 8.6 % (3.8-10.2); NEUT % 63.7 % (42.8-82.8); PLATELET COUNT 461 10^3/uL (134-434); RBC 4.26 M/mm3 (3.60-5.2); RDW 23.8 % (11.6-15.6); WHITE BLOOD COUNT 6.6 K/mm3 (4.0-10.0)
[2022-10-25 09:55] LABS: MCH 18.2 pg (25.7-33.7)
[2022-10-25 09:59] LABS: EPI CELLS 12 /uL (0-25.1); HYALINE CASTS 2 /uL (0-3.1); URINE APPEARANCE CLEAR; URINE BACTERIA 149 /uL (0-1359); URINE BILIRUBIN NEGATIVE (NEGATIVE); URINE COLOR YELLOW; URINE GLUCOSE (UA) NEGATIVE (NEGATIVE); URINE KETONE NEGATIVE (NEGATIVE); URINE LEUK ESTERASE 1+ (NEGATIVE); URINE NITRITE NEGATIVE (NEGATIVE); URINE PROTEIN NEGATIVE (NEGATIVE); URINE RBC 8 /uL (0-23.9); URINE WBC 125 /uL (0-25.8)
[2022-10-25] MEDS ORDERED: SULFAMETHOXAZOLE/TRIMETHOPRIM 800MG/160MG D.S. TABLET PO ONE (12:30)
[2022-10-25] MEDS ORDERED: SULFAMETHOXAZOLE/TRIMETHOPRIM 800MG/160MG D.S. TABLET ONE (13:18)
[2022-10-25 15:05] LABS: METHADONE, UR NEGATIVE (NEGATIVE); PHENCYCLIDINE,URINE NEGATIVE (NEGATIVE); URINE BARBITURATES NEGATIVE (NEGATIVE); URINE BENZODIAZEPINES NEGATIVE (NEGATIVE)
[2022-10-25 15:06] LABS: URINE AMPHETAMINES NEGATIVE (NEGATIVE)
[2022-10-25 15:12] LABS: COCAINE, UR POSITIVE (NEGATIVE); OPIATES, URI POSITIVE (NEGATIVE)
[2022-10-25] MEDS ORDERED: ACETAMINOPHEN 1000 MG/100 ML BAG IVPB PRN (17:08)
[2022-10-25] MEDS ORDERED: CEFTRIAXONE 1 GM/50 ML BAG ONE (20:01)
[2022-10-25] MEDS: CEFTRIAXONE 1 GM in DEXTROSE 5%-WATER - 50 ML IVPB SCH (20:18)
[2022-10-25] MEDS: traMADol HCL 50 MG TABLET PO PRN (21:28)
[2022-10-26 08:31] LABS: BASO % 1.1 % (0-2.0); EOS % 2.3 % (0-4.5); HEMATOCRIT 27.1 % (32.4-45.2); HEMOGLOBIN 7.8 GM/dL (10.7-15.3); LYMPH % 11.9 % (8-40); MCHC 28.9 g/dl (32.0-36.0); MEAN CELL VOLUME 61.8 fl (80-96); MEAN PLT VOLUME 8.3 fl (7.5-11.1); MONO % 10.7 % (3.8-10.2); PLATELET COUNT 421 10^3/uL (134-434); RBC 4.39 M/mm3 (3.60-5.2); RDW 23.9 % (11.6-15.6)
[2022-10-26 08:34] LABS: MCH 17.9 pg (25.7-33.7)
[2022-10-26 08:54] LABS: ALBUMIN 2.7 g/dl (3.4-5.0); BLOOD UREA NITROGEN 10.8 mg/dL (7-18); CALCIUM 8.6 mg/dL (8.5-10.1)
[2022-10-26 08:57] LABS: CREATININE 0.5 mg/dL (0.55-1.3)
[2022-10-26 08:59] LABS: BILIRUBIN,TOTAL 0.9 mg/dL (0.2-1); TOT PROT 6.4 g/dl (6.4-8.2)
[2022-10-26] MEDS: CEFTRIAXONE 1 GM in DEXTROSE 5%-WATER - 50 ML IVPB SCH (11:38)
[2022-10-26] MEDS: traMADol HCL 50 MG TABLET PO PRN ×2 (11:38→17:56)
[2022-10-26 14:35] VITALS: RESP 18
[2022-10-26] MEDS ORDERED: IRON SUCROSE INJECTION 200 MG in SODIUM CHLORIDE 90 ML IVPB ONE (16:00)
[2022-10-26] MEDS: KETOROLAC TROMETHAMINE 15 MG/ML VIAL IVPUSH SCH ×2 (17:18→23:41)
[2022-10-26] MEDS ORDERED: MELATONIN 5 MG TABLETS PO PRN (21:17)
[2022-10-27] MEDS: KETOROLAC TROMETHAMINE 15 MG/ML VIAL IVPUSH SCH ×3 (05:51→12:03)
[2022-10-27 06:41] VITALS: TEMP 98.9
[2022-10-27 09:18] VITALS: BP 146/78; PULSE 76
[2022-10-27] MEDS: CEFTRIAXONE 1 GM in DEXTROSE 5%-WATER - 50 ML IVPB SCH (09:34)
[2022-10-27] MEDS: traMADol HCL 50 MG TABLET PO PRN (11:42)
[2022-10-27] MEDS ORDERED: IRON SUCROSE INJECTION 200 MG in SODIUM CHLORIDE 90 ML IVPB ONE (15:14)
[2022-10-28] MEDS ORDERED: IRON SUCROSE INJECTION 200 MG in SODIUM CHLORIDE 90 ML IVPB ONE (15:15)
[2022-10-29] MEDS ORDERED: IRON SUCROSE INJECTION 200 MG in SODIUM CHLORIDE 90 ML IVPB ONE (15:15)
== END 2022-10-27 13:11 | disposition left against medical advice (07) | DRG 463 ==
LOC: JER 05:38 → UNDOADMOB 14:14 → INTOOBSV 14:14 → JERBED 14:14 → J5S 20:45 → OBSVTOIN 10-26 15:13
PROVIDERS: ADMIT Internal Medicine; ATTEND Internal Medicine
DX: N13.6 Pyonephrosis (principal); M32.9 Systemic lupus erythematosus, unspecified; M79.7 Fibromyalgia; E78.5 Hyperlipidemia, unspecified; I10 Essential (primary) hypertension; F41.9 Anxiety disorder, unspecified; D25.9 Leiomyoma of uterus, unspecified; N73.0 Acute parametritis and pelvic cellulitis; F12.90 Cannabis use, unspecified, uncomplicated; R10.2 Pelvic and perineal pain; D50.0 Iron deficiency anemia secondary to blood loss (chronic); F17.210 Nicotine dependence, cigarettes, uncomplicated; N92.0 Excessive and frequent menstruation with regular cycle
CPT/HCPCS: 0241U-QW; 36415; 74176-TC; 80053; 80307; 81003; 82728; 83540; 83550; 84703; 85025; 85610; 85730; 86850; 86900; 86901; 87077; 87086; 87186; 99285-25; G0378; J1756

== ENCOUNTER 2022-11-21 09:49 | Inpatient (IN) | payer OTHER ==
[2022-11-21] MEDS ORDERED: NALOXONE HCL (KLOXXADO) 8 MG SPRAY NS PRN (11:16)
[2022-11-21] MEDS ORDERED: LOPERAMIDE HCL 2 MG CAPSULE PO PRN (11:16)
[2022-11-21] MEDS ORDERED: guaiFENesin 600 MG TABLET.ER (FP) PO PRN (11:16)
[2022-11-21] MEDS ORDERED: POLYETHYLENE GLYCOL (HEALTHYLAX) 3350 17 GM PACKET PO PRN (11:16)
[2022-11-21] MEDS ORDERED: BENZOCAINE/MENTHOL (CHLORASEPTIC ) LOZENGE MM PRN (11:16)
[2022-11-21] MEDS ORDERED: NALOXONE HCL 0.4 MG/ML VIAL IM PRN (11:16)
[2022-11-21] MEDS ORDERED: BENZONATATE 200 MG CAPSULE PO PRN (11:16)
[2022-11-21] MEDS ORDERED: DICYCLOMINE HCL 10 MG CAPSULE PO PRN (11:16)
[2022-11-21] MEDS ORDERED: NICOTINE 10 MG CARTRIDGE (INHALER) IH PRN (11:16)
[2022-11-21] MEDS ORDERED: ONDANSETRON *ODT* 4 MG TABLET SL PRN (11:16)
[2022-11-21] MEDS ORDERED: MAGNESIUM HYDROX 2400MG/30ML ORAL SUSPENSION 30 ML CUP PO PRN (11:16)
[2022-11-21] MEDS ORDERED: MAG HYDROX/AL HYDROX/SIMETH 30 ML UNIT-DOSE CUP PO PRN (11:16)
[2022-11-21] MEDS ORDERED: hydrOXYzine PAMOATE 25 MG CAPSULE (FP) PO ONE (12:13)
[2022-11-21 12:36] VITALS: BMI 25.2
[2022-11-21] MEDS: NICOTINE POLACRILEX 2 MG GUM BUC PRN (12:44)
[2022-11-21] MEDS: METHOCARBAMOL 500 MG TABLET PO PRN (12:44)
[2022-11-21] MEDS: ACETAMINOPHEN 325 MG TABLET (FP) PO PRN (12:44)
[2022-11-21] MEDS ORDERED: BUPRENORPHINE HCL 150 MCG, BUPRENORPHINE HCL 75 MCG BC ONE (13:29)
[2022-11-21] MEDS ORDERED: BUPRENORPHINE HCL 150 MCG, BUPRENORPHINE HCL 75 MCG BC PRN (13:29)
[2022-11-21] MEDS ORDERED: cloNIDine HCL 0.1 MG TABLET PO ONE (13:29)
[2022-11-21] MEDS ORDERED: TRIMETHOBENZAMIDE HCL 200MG/2ML INJ IM ONE (13:29)
[2022-11-21] MEDS ORDERED: HYDROXYCHLOROQUINE SO4 200 MG TABLET (FP) PO SCH (13:45)
[2022-11-21] MEDS ORDERED: PATIENT'S OWN MEDICATION (NON-FORMULARY) (Lisinopril/Hydrochlorothiazide [Lisinopril-Hctz PO SCH (13:45)
[2022-11-21] MEDS: HYDROCHLOROTHIAZIDE 12.5 MG CAPSULE (FP) PO SCH (14:18)
[2022-11-21] MEDS: LISINOPRIL 10 MG TABLET PO SCH (14:20)
[2022-11-21] MEDS: diazePAM 5 MG TABLET PO PRN ×2 (15:31→22:45)
[2022-11-21] MEDS: THIAMINE HCL 100 MG TABLET (FP) PO SCH (22:45)
[2022-11-21] MEDS: MELATONIN 5 MG TABLETS PO PRN (22:46)
[2022-11-22] MEDS ORDERED: BUPRENORPHINE HCL 150 MCG, BUPRENORPHINE HCL 75 MCG BC PRN
[2022-11-22] MEDS: BUPRENORPHINE HCL 150 MCG, BUPRENORPHINE HCL 75 MCG BC SCH ×2 (06:14→18:06)
[2022-11-22] MEDS: METHOCARBAMOL 500 MG TABLET PO PRN ×2 (06:14→18:09)
[2022-11-22] MEDS: ACETAMINOPHEN 325 MG TABLET (FP) PO PRN (06:15)
[2022-11-22] MEDS: hydrOXYzine PAMOATE 25 MG CAPSULE (FP) PO PRN (09:35)
[2022-11-22] MEDS: LISINOPRIL 10 MG TABLET PO SCH (09:35)
[2022-11-22] MEDS: diazePAM 5 MG TABLET PO PRN ×2 (09:35→19:15)
[2022-11-22] MEDS: HYDROCHLOROTHIAZIDE 12.5 MG CAPSULE (FP) PO SCH (09:35)
[2022-11-22] MEDS: PRENATAL VITAMINS W/ FOLIC ACID TABLET (FP) PO SCH (09:36)
[2022-11-22 11:22] LABS: HEMATOCRIT 24.7 % (32.4-45.2); HEMOGLOBIN 7.3 GM/dL (10.7-15.3); MCHC 29.4 g/dl (32.0-36.0); MEAN CELL VOLUME 63.7 fl (80-96); MEAN PLT VOLUME 6.7 fl (7.5-11.1); PLATELET COUNT 412 10^3/uL (134-434); RBC 3.88 M/mm3 (3.60-5.2); RDW 25.2 % (11.6-15.6); WHITE BLOOD COUNT 5.7 K/mm3 (4.0-10.0)
[2022-11-22 11:26] LABS: MCH 18.7 pg (25.7-33.7)
[2022-11-22 11:35] LABS: ALBUMIN 2.6 g/dl (3.4-5.0); BLOOD UREA NITROGEN 15.2 mg/dL (7-18); CALCIUM 8.5 mg/dL (8.5-10.1)
[2022-11-22 11:37] LABS: CREATININE 0.4 mg/dL (0.55-1.3)
[2022-11-22 11:39] LABS: BILIRUBIN,TOTAL 0.3 mg/dL (0.2-1)
[2022-11-22] MEDS: NICOTINE POLACRILEX 2 MG GUM BUC PRN ×2 (18:10→20:33)
[2022-11-22] MEDS: cloNIDine HCL 0.1 MG TABLET PO PRN (18:15)
[2022-11-22] MEDS: THIAMINE HCL 100 MG TABLET (FP) PO SCH (22:27)
[2022-11-23] MEDS: diazePAM 5 MG TABLET PO PRN ×2 (01:13→08:15)
[2022-11-23] MEDS: ACETAMINOPHEN 325 MG TABLET (FP) PO PRN ×3 (01:13→22:40)
[2022-11-23] MEDS: BUPRENORPHINE HCL 450 MCG FILM BC SCH ×2 (05:42→17:50)
[2022-11-23] MEDS: METHOCARBAMOL 500 MG TABLET PO PRN ×2 (07:22→17:50)
[2022-11-23] MEDS: PRENATAL VITAMINS W/ FOLIC ACID TABLET (FP) PO SCH (10:39)
[2022-11-23] MEDS: LISINOPRIL 10 MG TABLET PO SCH (10:39)
[2022-11-23] MEDS: HYDROCHLOROTHIAZIDE 12.5 MG CAPSULE (FP) PO SCH (10:39)
[2022-11-23] MEDS: cloNIDine HCL 0.1 MG TABLET PO PRN ×2 (10:41→22:40)
[2022-11-23] MEDS: hydrOXYzine PAMOATE 25 MG CAPSULE (FP) PO PRN ×2 (10:45→17:53)
[2022-11-23] MEDS: NICOTINE POLACRILEX 2 MG GUM BUC PRN (11:05)
[2022-11-23] MEDS: THIAMINE HCL 100 MG TABLET (FP) PO SCH (22:40)
[2022-11-23] MEDS: MELATONIN 5 MG TABLETS PO PRN (22:40)
[2022-11-24] MEDS: BUPRENORPHINE/NALOXONE 4 MG/1 MG FILM PACKET SL SCH ×2 (06:02→18:03)
[2022-11-24] MEDS: METHOCARBAMOL 500 MG TABLET PO PRN ×3 (06:11→17:31)
[2022-11-24] MEDS: hydrOXYzine PAMOATE 25 MG CAPSULE (FP) PO PRN ×2 (07:19→18:00)
[2022-11-24] MEDS: PRENATAL VITAMINS W/ FOLIC ACID TABLET (FP) PO SCH (10:29)
[2022-11-24] MEDS: cloNIDine HCL 0.1 MG TABLET PO PRN ×3 (10:32→22:14)
[2022-11-24] MEDS: HYDROCHLOROTHIAZIDE 12.5 MG CAPSULE (FP) PO SCH (10:32)
[2022-11-24] MEDS: LISINOPRIL 10 MG TABLET PO SCH (10:32)
[2022-11-24] MEDS: ACETAMINOPHEN 325 MG TABLET (FP) PO PRN ×2 (12:14→17:33)
[2022-11-24] MEDS: NICOTINE POLACRILEX 2 MG GUM BUC PRN ×2 (12:53→18:05)
[2022-11-24] MEDS: THIAMINE HCL 100 MG TABLET (FP) PO SCH (22:14)
[2022-11-24] MEDS: MELATONIN 5 MG TABLETS PO PRN (22:14)
[2022-11-25] MEDS ORDERED: guaiFENesin 200 MG/10 ML 10 ML UNIT-DOSE CUPS PO PRN (02:42)
[2022-11-25] MEDS ORDERED: BUPRENORPHINE/NALOXONE 8 MG/2 MG FILM PACKET SL ONE (06:00)
[2022-11-25] MEDS: NICOTINE POLACRILEX 2 MG GUM BUC PRN (06:12)
[2022-11-25] MEDS: ACETAMINOPHEN 325 MG TABLET (FP) PO PRN (06:12)
[2022-11-25] MEDS: METHOCARBAMOL 500 MG TABLET PO PRN (06:12)
[2022-11-25 07:08] VITALS: PULSE 91; RESP 18
[2022-11-25 07:19] VITALS: BP 118/60; TEMP 98
[2022-11-25] MEDS: LISINOPRIL 10 MG TABLET PO SCH (09:49)
[2022-11-25] MEDS: HYDROCHLOROTHIAZIDE 12.5 MG CAPSULE (FP) PO SCH (09:49)
[2022-11-25] MEDS: PRENATAL VITAMINS W/ FOLIC ACID TABLET (FP) PO SCH (09:49)
[2022-11-25] MEDS ORDERED: FERROUS SO4 325 MG TABLET (FP) PO SCH (17:30)
== END 2022-11-25 12:25 | disposition home or self-care (01) | DRG 773 ==
LOC: YASAS 09:49 → Y6N 12:19
PROVIDERS: ADMIT Allergy & Immunology; ATTEND Surgery
PROC: HZ2ZZZZ Detoxification Services for Substance Abuse Treatment (ICD-10-PCS; principal; 2022-11-21)
DX: F11.23 Opioid dependence with withdrawal (principal); F14.20 Cocaine dependence, uncomplicated; F17.210 Nicotine dependence, cigarettes, uncomplicated; F43.10 Post-traumatic stress disorder, unspecified; D50.9 Iron deficiency anemia, unspecified; I10 Essential (primary) hypertension; M79.7 Fibromyalgia; M32.9 Systemic lupus erythematosus, unspecified; R05.9 Cough, unspecified; Z62.810 Personal history of physical and sexual abuse in childhood; Z28.310 Unvaccinated for COVID-19; Z28.9 Immunization not carried out for unspecified reason; Z88.0 Allergy status to penicillin; Z91.014 Allergy to mammalian meats; Z91.041 Radiographic dye allergy status
CPT/HCPCS: 36415; 80053; 85027; 86780; C9803-CS; Q0162; U0003; U0005

== ENCOUNTER 2023-01-25 12:01 | Inpatient (IN) | payer OTHER ==
[2023-01-25 12:52] VITALS: BMI 25.0
[2023-01-25] MEDS ORDERED: LOPERAMIDE HCL 2 MG CAPSULE PO PRN (13:44)
[2023-01-25] MEDS ORDERED: P-EPHED 60MG/TRIPROLIDI 2.5MG TABLET PO PRN (13:44)
[2023-01-25] MEDS ORDERED: DICYCLOMINE HCL 10 MG CAPSULE PO PRN (13:44)
[2023-01-25] MEDS ORDERED: ACETAMINOPHEN 325 MG TABLET (FP) PO PRN ×2 (13:44)
[2023-01-25] MEDS ORDERED: ONDANSETRON *ODT* 4 MG TABLET SL PRN (13:44)
[2023-01-25] MEDS ORDERED: POLYETHYLENE GLYCOL (HEALTHYLAX) 3350 17 GM PACKET PO PRN (13:44)
[2023-01-25] MEDS ORDERED: BENZOCAINE/MENTHOL (CHLORASEPTIC ) LOZENGE MM PRN (13:44)
[2023-01-25] MEDS ORDERED: MAG HYDROX/AL HYDROX/SIMETH 30 ML UNIT-DOSE CUP PO PRN (13:44)
[2023-01-25] MEDS ORDERED: MAGNESIUM HYDROX 2400MG/30ML ORAL SUSPENSION 30 ML CUP PO PRN (13:44)
[2023-01-25] MEDS ORDERED: guaiFENesin 600 MG TABLET.ER (FP) PO PRN (13:44)
[2023-01-25] MEDS ORDERED: NALOXONE HCL 0.4 MG/ML VIAL IM PRN (13:44)
[2023-01-25] MEDS ORDERED: BENZONATATE 200 MG CAPSULE PO PRN (13:44)
[2023-01-25] MEDS ORDERED: NALOXONE HCL (KLOXXADO) 8 MG SPRAY NS PRN (13:44)
[2023-01-25] MEDS ORDERED: NICOTINE 10 MG CARTRIDGE (INHALER) IH PRN (13:44)
[2023-01-25] MEDS ORDERED: NICOTINE POLACRILEX 2 MG GUM BUC PRN (13:44)
[2023-01-25 18:23] LABS: HEMATOCRIT 30.4 % (32.4-45.2); HEMOGLOBIN 9.4 GM/dL (10.7-15.3); MCH 21.5 pg (25.7-33.7); MCHC 31.1 g/dl (32.0-36.0); MEAN CELL VOLUME 69.1 fl (80-96); MEAN PLT VOLUME 7.4 fl (7.5-11.1); PLATELET COUNT 370 10^3/uL (134-434); RDW 22.6 % (11.6-15.6); WHITE BLOOD COUNT 5.2 K/mm3 (4.0-10.0)
[2023-01-25] MEDS: MELATONIN 5 MG TABLETS PO SCH (23:18)
[2023-01-25] MEDS: THIAMINE HCL 100 MG TABLET (FP) PO SCH (23:18)
[2023-01-25] MEDS: FERROUS SO4 325 MG TABLET (FP) PO SCH (23:18)
[2023-01-26] MEDS: METHOCARBAMOL 500 MG TABLET PO PRN ×3 (05:29→22:39)
[2023-01-26] MEDS: hydrOXYzine PAMOATE 25 MG CAPSULE (FP) PO PRN ×3 (05:29→22:39)
[2023-01-26] MEDS ORDERED: cloNIDine HCL 0.1 MG TABLET PO ONE ×2 (07:08→23:03)
[2023-01-26 10:52] LABS: POTASSIUM 4.3 mmol/L (3.5-5.1)
[2023-01-26 10:57] LABS: CALCIUM 8.9 mg/dL (8.5-10.1)
[2023-01-26] MEDS: FERROUS SO4 325 MG TABLET (FP) PO SCH ×2 (10:57→22:37)
[2023-01-26] MEDS: PRENATAL VITAMINS W/ FOLIC ACID TABLET (FP) PO SCH (10:57)
[2023-01-26 10:58] LABS: BLOOD UREA NITROGEN 12.7 mg/dL (7-18)
[2023-01-26 11:01] LABS: CREATININE 0.7 mg/dL (0.55-1.3)
[2023-01-26 11:02] LABS: BILIRUBIN,TOTAL 0.5 mg/dL (0.2-1)
[2023-01-26] MEDS: diazePAM 5 MG TABLET PO PRN ×2 (15:42→20:46)
[2023-01-26] MEDS: MELATONIN 5 MG TABLETS PO SCH (22:37)
[2023-01-26] MEDS: THIAMINE HCL 100 MG TABLET (FP) PO SCH (22:37)
[2023-01-27] MEDS: diazePAM 5 MG TABLET PO PRN (07:13)
[2023-01-27] MEDS: METHOCARBAMOL 500 MG TABLET PO PRN (07:13)
[2023-01-27] MEDS ORDERED: methaDONE HCL 10 MG TABLET (FOR DETOX USE ONLY) PO ONE (09:17)
[2023-01-27] MEDS ORDERED: cloNIDine HCL 0.1 MG TABLET PO PRN (09:17)
[2023-01-27] MEDS ORDERED: HYDROCHLOROTHIAZIDE 12.5 MG CAPSULE (FP) PO SCH (10:00)
[2023-01-27] MEDS ORDERED: PATIENT'S OWN MEDICATION (NON-FORMULARY) (Lisinopril/Hydrochlorothiazide [Lisinopril-Hctz PO SCH (10:00)
[2023-01-27] MEDS ORDERED: LISINOPRIL 10 MG TABLET PO SCH (10:00)
[2023-01-27] MEDS: PRENATAL VITAMINS W/ FOLIC ACID TABLET (FP) PO SCH (10:53)
[2023-01-27] MEDS: FERROUS SO4 325 MG TABLET (FP) PO SCH (10:53)
[2023-01-27] MEDS ORDERED: BUPRENORPHINE HCL 150 MCG, BUPRENORPHINE HCL 75 MCG BC ONE (11:42)
[2023-01-27] MEDS ORDERED: BUPRENORPHINE HCL 150 MCG, BUPRENORPHINE HCL 75 MCG BC PRN (11:42)
[2023-01-27 11:45] VITALS: BP 149/75; PULSE 84; RESP 17; TEMP 97.3
[2023-01-27] MEDS ORDERED: diazePAM 5 MG TABLET PO PRN (11:47)
[2023-01-28] MEDS ORDERED: BUPRENORPHINE HCL 150 MCG, BUPRENORPHINE HCL 75 MCG BC PRN
[2023-01-28] MEDS ORDERED: BUPRENORPHINE HCL 150 MCG, BUPRENORPHINE HCL 75 MCG BC SCH (06:00)
[2023-01-29] MEDS ORDERED: BUPRENORPHINE HCL 450 MCG FILM BC PRN
[2023-01-29] MEDS ORDERED: BUPRENORPHINE HCL 450 MCG FILM BC SCH (06:00)
[2023-01-29] MEDS ORDERED: methaDONE HCL 10 MG TABLET (FOR DETOX USE ONLY) PO ONE (10:00)
[2023-01-29] MEDS ORDERED: BUPRENORPHINE/NALOXONE 2 MG/0.5 MG FILM PACKET SL ONE (22:00)
[2023-01-30] MEDS ORDERED: BUPRENORPHINE/NALOXONE 4 MG/1 MG FILM PACKET SL SCH (06:00)
[2023-01-31] MEDS ORDERED: BUPRENORPHINE/NALOXONE 8 MG/2 MG FILM PACKET SL ONE (06:00)
[2023-01-31] MEDS ORDERED: methaDONE HCL 10 MG TABLET (FOR DETOX USE ONLY) PO ONE (10:00)
== END 2023-01-27 14:02 | disposition home or self-care (01) | DRG 773 ==
LOC: YASAS 12:01 → Y6N 15:08
PROVIDERS: ADMIT Allergy & Immunology; ATTEND Surgery
PROC: HZ2ZZZZ Detoxification Services for Substance Abuse Treatment (ICD-10-PCS; principal; 2023-01-25)
DX: F11.23 Opioid dependence with withdrawal (principal); F14.20 Cocaine dependence, uncomplicated; F17.210 Nicotine dependence, cigarettes, uncomplicated; D50.9 Iron deficiency anemia, unspecified; I10 Essential (primary) hypertension; R94.31 Abnormal electrocardiogram [ECG] [EKG]; Z88.0 Allergy status to penicillin; Z88.8 Allergy status to other drugs, medicaments and biological substances; Z91.041 Radiographic dye allergy status; Z28.310 Unvaccinated for COVID-19; Z28.9 Immunization not carried out for unspecified reason
CPT/HCPCS: 36415; 80053; 81025; 85027; 86780; 87635; 93005; 93010

== ENCOUNTER 2023-06-21 09:05 | Inpatient (IN) | payer OTHER ==
[2023-06-21 10:42] VITALS: BMI 22.6
[2023-06-21] MEDS ORDERED: cloNIDine HCL 0.1 MG TABLET ONE (11:30)
[2023-06-21] MEDS ORDERED: hydrOXYzine PAMOATE 25 MG CAPSULE (FP) PO ONE (11:31)
[2023-06-21] MEDS ORDERED: POLYETHYLENE GLYCOL (HEALTHYLAX) 3350 17 GM PACKET PO PRN (11:50)
[2023-06-21] MEDS ORDERED: COLLOIDAL OATMEAL 1 BAR EACH TP PRN (11:50)
[2023-06-21] MEDS ORDERED: BENZONATATE 200 MG CAPSULE PO PRN (11:50)
[2023-06-21] MEDS ORDERED: BENZOCAINE/MENTHOL (CHLORASEPTIC ) LOZENGE MM PRN (11:50)
[2023-06-21] MEDS ORDERED: IBUPROFEN 600 MG TABLET (FP) PO PRN (11:50)
[2023-06-21] MEDS ORDERED: NALOXONE HCL 0.4 MG/ML VIAL IM PRN (11:50)
[2023-06-21] MEDS ORDERED: IBUPROFEN 400 MG TABLET (FP) PO PRN (11:50)
[2023-06-21] MEDS ORDERED: MAGNESIUM HYDROX 2400MG/30ML ORAL SUSPENSION 30 ML CUP PO PRN (11:50)
[2023-06-21] MEDS ORDERED: guaiFENesin 600 MG TABLET.ER (FP) PO PRN (11:50)
[2023-06-21] MEDS ORDERED: LOPERAMIDE HCL 2 MG CAPSULE PO PRN (11:50)
[2023-06-21] MEDS ORDERED: NALOXONE HCL (KLOXXADO) 8 MG SPRAY NS PRN (11:50)
[2023-06-21] MEDS ORDERED: BUPRENORPHINE/NALOXONE 4 MG/1 MG FILM PACKET ONE (11:51)
[2023-06-21] MEDS ORDERED: BUPRENORPHINE/NALOXONE 8 MG/2 MG FILM PACKET SL SCH (12:00)
[2023-06-21] MEDS: hydrOXYzine PAMOATE 25 MG CAPSULE (FP) PO PRN ×2 (12:46→21:24)
[2023-06-21] MEDS: PRENATAL VITAMINS W/ FOLIC ACID TABLET (FP) PO SCH (12:47)
[2023-06-21] MEDS: FERROUS SO4 325 MG TABLET (FP) PO SCH ×2 (12:48→17:02)
[2023-06-21] MEDS: ACETAMINOPHEN 325 MG TABLET (FP) PO PRN (17:05)
[2023-06-21] MEDS: NICOTINE POLACRILEX 2 MG GUM BUC PRN ×2 (17:32→22:56)
[2023-06-21] MEDS: THIAMINE HCL 100 MG TABLET (FP) PO SCH (21:24)
[2023-06-21] MEDS: MELATONIN 5 MG TABLETS PO SCH (21:25)
[2023-06-21] MEDS: VITAMINS A AND D TOPICAL OINTMENT 60 GM TUBE TP SCH (22:07)
[2023-06-22] MEDS: FERROUS SO4 325 MG TABLET (FP) PO SCH ×3 (07:00→17:47)
[2023-06-22] MEDS ORDERED: BUPRENORPHINE/NALOXONE 8 MG/2 MG FILM PACKET SL SCH ×2 (09:13→10:00)
[2023-06-22] MEDS ORDERED: PATIENT'S OWN MEDICATION (NON-FORMULARY) (Lisinopril/Hydrochlorothiazide [Lisinopril-Hctz PO SCH (10:00)
[2023-06-22] MEDS: PRENATAL VITAMINS W/ FOLIC ACID TABLET (FP) PO SCH (10:03)
[2023-06-22] MEDS: HYDROCHLOROTHIAZIDE 12.5 MG CAPSULE (FP) PO SCH (10:04)
[2023-06-22] MEDS: LISINOPRIL 10 MG TABLET PO SCH (10:04)
[2023-06-22] MEDS: BUPRENORPHINE/NALOXONE 8 MG/2 MG FILM PACKET SL SCH ×2 (10:04→17:47)
[2023-06-22] MEDS: VITAMINS A AND D TOPICAL OINTMENT 60 GM TUBE TP SCH ×2 (10:07→21:32)
[2023-06-22] MEDS: NICOTINE POLACRILEX 2 MG GUM BUC PRN ×3 (10:38→21:33)
[2023-06-22] MEDS: ACETAMINOPHEN 325 MG TABLET (FP) PO PRN ×3 (11:44→21:34)
[2023-06-22 16:01] LABS: POTASSIUM 4.2 mmol/L (3.5-5.1)
[2023-06-22 16:07] LABS: HEMATOCRIT 26.4 % (32.4-45.2); HEMOGLOBIN 8.1 GM/dL (10.7-15.3); MCHC 30.6 g/dl (32.0-36.0); MEAN CELL VOLUME 71.9 fl (80-96); MEAN PLT VOLUME 7.1 fl (7.5-11.1); PLATELET COUNT 475 10^3/uL (134-434); RBC 3.67 M/mm3 (3.60-5.2); RDW 19.1 % (11.6-15.6); WHITE BLOOD COUNT 6.7 K/mm3 (4.0-10.0)
[2023-06-22 16:10] LABS: CALCIUM 8.5 mg/dL (8.5-10.1)
[2023-06-22 16:11] LABS: ALBUMIN 2.5 g/dl (3.4-5.0); BLOOD UREA NITROGEN 13.7 mg/dL (7-18)
[2023-06-22 16:14] LABS: BILIRUBIN,TOTAL 0.3 mg/dL (0.2-1); CREATININE 0.5 mg/dL (0.55-1.3)
[2023-06-22 16:15] LABS: TOT PROT 6.1 g/dl (6.4-8.2)
[2023-06-22 16:31] LABS: SYPHILIS W/ RPR CONF NON-REACTIVE (NONREACTIVE)
[2023-06-22 16:47] LABS: EPI CELLS 16 /uL (0-25.1); HYALINE CASTS 1 /uL (0-3.1); PH,URINE 5.5 (5.0-8.0); URINE APPEARANCE CLEAR; URINE BACTERIA 22 /uL (0-1359); URINE BILIRUBIN NEGATIVE (NEGATIVE); URINE COLOR YELLOW; URINE GLUCOSE (UA) NEGATIVE (NEGATIVE); URINE KETONE NEGATIVE (NEGATIVE); URINE LEUK ESTERASE 1+ (NEGATIVE); URINE NITRITE NEGATIVE (NEGATIVE); URINE PROTEIN NEGATIVE (NEGATIVE); URINE RBC 14 /uL (0-23.9); URINE UROBILINOGEN 0.2 mg/dL (0.2-1.0); URINE WBC 89 /uL (0-25.8)
[2023-06-22] MEDS: DOXYCYCLINE HYCLATE 100 MG CAPSULE PO SCH (17:46)
[2023-06-22] MEDS: hydrOXYzine PAMOATE 25 MG CAPSULE (FP) PO PRN (17:49)
[2023-06-22] MEDS: THIAMINE HCL 100 MG TABLET (FP) PO SCH (21:32)
[2023-06-22] MEDS: MELATONIN 5 MG TABLETS PO SCH (21:32)
[2023-06-23] MEDS: BUPRENORPHINE/NALOXONE 8 MG/2 MG FILM PACKET SL SCH ×2 (06:27→18:00)
[2023-06-23] MEDS: FERROUS SO4 325 MG TABLET (FP) PO SCH ×3 (07:05→17:59)
[2023-06-23] MEDS: ACETAMINOPHEN 325 MG TABLET (FP) PO PRN ×2 (08:54→18:22)
[2023-06-23] MEDS: NICOTINE POLACRILEX 2 MG GUM BUC PRN ×4 (08:55→21:22)
[2023-06-23] MEDS: PRENATAL VITAMINS W/ FOLIC ACID TABLET (FP) PO SCH (10:06)
[2023-06-23] MEDS: DOXYCYCLINE HYCLATE 100 MG CAPSULE PO SCH ×2 (10:07→17:59)
[2023-06-23] MEDS: LISINOPRIL 10 MG TABLET PO SCH (10:07)
[2023-06-23] MEDS: HYDROCHLOROTHIAZIDE 12.5 MG CAPSULE (FP) PO SCH (10:07)
[2023-06-23] MEDS: VITAMINS A AND D TOPICAL OINTMENT 60 GM TUBE TP SCH ×2 (10:08→22:27)
[2023-06-23] MEDS: MAG HYDROX/AL HYDROX/SIMETH 30 ML UNIT-DOSE CUP PO PRN (10:18)
[2023-06-23] MEDS ORDERED: DOCUSATE SODIUM 100 MG CAPSULE (FP) PO ONE (13:30)
[2023-06-23] MEDS: PANTOPRAZOLE 20 MG TABLET PO SCH (14:15)
[2023-06-23] MEDS: THIAMINE HCL 100 MG TABLET (FP) PO SCH (21:20)
[2023-06-23] MEDS: MELATONIN 5 MG TABLETS PO SCH (21:20)
[2023-06-24] MEDS: BUPRENORPHINE/NALOXONE 8 MG/2 MG FILM PACKET SL SCH ×3 (06:04→21:33)
[2023-06-24] MEDS: ACETAMINOPHEN 325 MG TABLET (FP) PO PRN ×3 (06:40→23:08)
[2023-06-24] MEDS: NICOTINE POLACRILEX 2 MG GUM BUC PRN ×4 (06:41→21:52)
[2023-06-24] MEDS: hydrOXYzine PAMOATE 25 MG CAPSULE (FP) PO PRN (06:42)
[2023-06-24] MEDS: FERROUS SO4 325 MG TABLET (FP) PO SCH ×3 (07:01→18:01)
[2023-06-24] MEDS: PANTOPRAZOLE 20 MG TABLET PO SCH (09:34)
[2023-06-24] MEDS: VITAMINS A AND D TOPICAL OINTMENT 60 GM TUBE TP SCH ×2 (09:35→21:34)
[2023-06-24] MEDS: DOXYCYCLINE HYCLATE 100 MG CAPSULE PO SCH ×2 (09:35→18:02)
[2023-06-24] MEDS: LISINOPRIL 10 MG TABLET PO SCH (09:39)
[2023-06-24] MEDS: PRENATAL VITAMINS W/ FOLIC ACID TABLET (FP) PO SCH (09:39)
[2023-06-24] MEDS: HYDROCHLOROTHIAZIDE 12.5 MG CAPSULE (FP) PO SCH (09:39)
[2023-06-24] MEDS: THIAMINE HCL 100 MG TABLET (FP) PO SCH (21:33)
[2023-06-24] MEDS: MELATONIN 5 MG TABLETS PO SCH (21:33)
[2023-06-25] MEDS: BUPRENORPHINE/NALOXONE 8 MG/2 MG FILM PACKET SL SCH ×3 (06:34→22:10)
[2023-06-25] MEDS: NICOTINE POLACRILEX 2 MG GUM BUC PRN ×4 (06:37→22:12)
[2023-06-25] MEDS: FERROUS SO4 325 MG TABLET (FP) PO SCH ×3 (07:03→17:03)
[2023-06-25] MEDS: hydrOXYzine PAMOATE 25 MG CAPSULE (FP) PO PRN (08:38)
[2023-06-25] MEDS: ACETAMINOPHEN 325 MG TABLET (FP) PO PRN ×2 (08:38→17:53)
[2023-06-25] MEDS: PRENATAL VITAMINS W/ FOLIC ACID TABLET (FP) PO SCH (09:45)
[2023-06-25] MEDS: LISINOPRIL 10 MG TABLET PO SCH (09:46)
[2023-06-25] MEDS: HYDROCHLOROTHIAZIDE 12.5 MG CAPSULE (FP) PO SCH (09:46)
[2023-06-25] MEDS: PANTOPRAZOLE 20 MG TABLET PO SCH (09:47)
[2023-06-25] MEDS: DOXYCYCLINE HYCLATE 100 MG CAPSULE PO SCH (09:47)
[2023-06-25] MEDS: VITAMINS A AND D TOPICAL OINTMENT 60 GM TUBE TP SCH ×2 (09:48→22:11)
[2023-06-25] MEDS: BACLOFEN 10 MG TABLET (FP) PO SCH ×2 (14:10→22:09)
[2023-06-25] MEDS: MAG HYDROX/AL HYDROX/SIMETH 30 ML UNIT-DOSE CUP PO PRN (17:30)
[2023-06-25] MEDS: DOXYCYCLINE HYCLATE 100 MG TABLET PO SCH (18:00)
[2023-06-25] MEDS: MELATONIN 5 MG TABLETS PO SCH (22:09)
[2023-06-25] MEDS: THIAMINE HCL 100 MG TABLET (FP) PO SCH (22:09)
[2023-06-26] MEDS: ACETAMINOPHEN 325 MG TABLET (FP) PO PRN ×2 (01:40→20:55)
[2023-06-26] MEDS: hydrOXYzine PAMOATE 25 MG CAPSULE (FP) PO PRN ×2 (01:40→11:19)
[2023-06-26] MEDS: BACLOFEN 10 MG TABLET (FP) PO SCH ×3 (06:27→21:01)
[2023-06-26] MEDS: BUPRENORPHINE/NALOXONE 8 MG/2 MG FILM PACKET SL SCH ×3 (06:27→22:27)
[2023-06-26] MEDS: FERROUS SO4 325 MG TABLET (FP) PO SCH ×3 (07:03→17:37)
[2023-06-26] MEDS: NICOTINE POLACRILEX 2 MG GUM BUC PRN (07:03)
[2023-06-26] MEDS: HYDROCHLOROTHIAZIDE 12.5 MG CAPSULE (FP) PO SCH (10:07)
[2023-06-26] MEDS: PRENATAL VITAMINS W/ FOLIC ACID TABLET (FP) PO SCH (10:08)
[2023-06-26] MEDS: LISINOPRIL 10 MG TABLET PO SCH (10:09)
[2023-06-26] MEDS: DOXYCYCLINE HYCLATE 100 MG TABLET PO SCH ×2 (10:09→17:38)
[2023-06-26] MEDS: PANTOPRAZOLE 20 MG TABLET PO SCH (10:09)
[2023-06-26] MEDS: VITAMINS A AND D TOPICAL OINTMENT 60 GM TUBE TP SCH (10:11)
[2023-06-26] MEDS: cloNIDine HCL 0.1 MG TABLET PO PRN (11:19)
[2023-06-26] MEDS: metroNIDAZOLE 250 MG TABLET PO SCH ×2 (13:23→21:01)
[2023-06-26] MEDS: MIRTAZAPINE 15 MG TABLET (FP) PO SCH (21:00)
[2023-06-26] MEDS: THIAMINE HCL 100 MG TABLET (FP) PO SCH (21:01)
[2023-06-26] MEDS: MELATONIN 5 MG TABLETS PO SCH (21:53)
[2023-06-27] MEDS: hydrOXYzine PAMOATE 25 MG CAPSULE (FP) PO PRN ×3 (02:56→17:26)
[2023-06-27] MEDS: ACETAMINOPHEN 325 MG TABLET (FP) PO PRN ×3 (02:56→17:27)
[2023-06-27] MEDS: BACLOFEN 10 MG TABLET (FP) PO SCH ×3 (06:47→22:10)
[2023-06-27] MEDS: BUPRENORPHINE/NALOXONE 8 MG/2 MG FILM PACKET SL SCH ×3 (06:47→22:13)
[2023-06-27] MEDS: NICOTINE POLACRILEX 2 MG GUM BUC PRN ×4 (07:10→22:16)
[2023-06-27] MEDS: FERROUS SO4 325 MG TABLET (FP) PO SCH ×3 (07:13→17:30)
[2023-06-27] MEDS: DOXYCYCLINE HYCLATE 100 MG TABLET PO SCH ×2 (09:25→17:26)
[2023-06-27] MEDS: PRENATAL VITAMINS W/ FOLIC ACID TABLET (FP) PO SCH (09:25)
[2023-06-27] MEDS: LISINOPRIL 10 MG TABLET PO SCH (09:25)
[2023-06-27] MEDS: metroNIDAZOLE 250 MG TABLET PO SCH ×2 (09:25→10:10)
[2023-06-27] MEDS: PANTOPRAZOLE 20 MG TABLET PO SCH (09:25)
[2023-06-27] MEDS: cloNIDine HCL 0.1 MG TABLET PO PRN (12:44)
[2023-06-27 12:46] VITALS: RESP 18
[2023-06-27] MEDS: LIDOCAINE 4% PATCH TP SCH (15:48)
[2023-06-27] MEDS: MELATONIN 5 MG TABLETS PO SCH (22:11)
[2023-06-27] MEDS: THIAMINE HCL 100 MG TABLET (FP) PO SCH (22:11)
[2023-06-27] MEDS: MIRTAZAPINE 15 MG TABLET (FP) PO SCH (22:11)
[2023-06-27] MEDS: LIDOCAINE PATCH REMOVAL MC SCH (22:14)
[2023-06-28] MEDS: BACLOFEN 10 MG TABLET (FP) PO SCH ×3 (06:20→21:40)
[2023-06-28] MEDS: BUPRENORPHINE/NALOXONE 8 MG/2 MG FILM PACKET SL SCH ×3 (06:20→21:44)
[2023-06-28] MEDS: ACETAMINOPHEN 325 MG TABLET (FP) PO PRN ×2 (06:21→14:53)
[2023-06-28] MEDS: hydrOXYzine PAMOATE 25 MG CAPSULE (FP) PO PRN ×2 (06:22→18:22)
[2023-06-28] MEDS: FERROUS SO4 325 MG TABLET (FP) PO SCH ×3 (07:02→17:26)
[2023-06-28] MEDS: PRENATAL VITAMINS W/ FOLIC ACID TABLET (FP) PO SCH (09:58)
[2023-06-28] MEDS: PANTOPRAZOLE 20 MG TABLET PO SCH (09:59)
[2023-06-28] MEDS: LISINOPRIL 10 MG TABLET PO SCH (09:59)
[2023-06-28] MEDS: DOXYCYCLINE HYCLATE 100 MG TABLET PO SCH ×2 (09:59→17:26)
[2023-06-28] MEDS: metroNIDAZOLE 250 MG TABLET PO SCH ×2 (09:59→21:41)
[2023-06-28] MEDS: LIDOCAINE 4% PATCH TP SCH (10:00)
[2023-06-28 15:13] LABS: HEMATOCRIT 26.1 % (32.4-45.2); HEMOGLOBIN 7.9 GM/dL (10.7-15.3); MCH 22.5 pg (25.7-33.7); MCHC 30.4 g/dl (32.0-36.0); MEAN CELL VOLUME 74.2 fl (80-96); MEAN PLT VOLUME 7.2 fl (7.5-11.1); PLATELET COUNT 444 10^3/uL (134-434); RBC 3.51 M/mm3 (3.60-5.2); RDW 20.1 % (11.6-15.6); WHITE BLOOD COUNT 7.5 K/mm3 (4.0-10.0)
[2023-06-28] MEDS: LIDOCAINE PATCH REMOVAL MC SCH (21:39)
[2023-06-28] MEDS: THIAMINE HCL 100 MG TABLET (FP) PO SCH (21:40)
[2023-06-28] MEDS: MIRTAZAPINE 15 MG TABLET (FP) PO SCH (21:40)
[2023-06-28] MEDS: MELATONIN 5 MG TABLETS PO SCH (21:41)
[2023-06-28] MEDS: NICOTINE POLACRILEX 2 MG GUM BUC PRN (21:55)
[2023-06-29] MEDS: BACLOFEN 10 MG TABLET (FP) PO SCH ×3 (06:45→21:10)
[2023-06-29] MEDS: BUPRENORPHINE/NALOXONE 8 MG/2 MG FILM PACKET SL SCH ×3 (06:47→21:12)
[2023-06-29] MEDS: ACETAMINOPHEN 325 MG TABLET (FP) PO PRN ×3 (06:49→18:28)
[2023-06-29] MEDS: hydrOXYzine PAMOATE 25 MG CAPSULE (FP) PO PRN (07:10)
[2023-06-29] MEDS: NICOTINE POLACRILEX 2 MG GUM BUC PRN (07:11)
[2023-06-29] MEDS: FERROUS SO4 325 MG TABLET (FP) PO SCH ×3 (07:23→18:25)
[2023-06-29] MEDS: LIDOCAINE 4% PATCH TP SCH (09:51)
[2023-06-29] MEDS: metroNIDAZOLE 250 MG TABLET PO SCH ×2 (09:52→21:10)
[2023-06-29] MEDS: PANTOPRAZOLE 20 MG TABLET PO SCH (09:52)
[2023-06-29] MEDS: PRENATAL VITAMINS W/ FOLIC ACID TABLET (FP) PO SCH (09:52)
[2023-06-29] MEDS: cloNIDine HCL 0.1 MG TABLET PO PRN (09:57)
[2023-06-29] MEDS: DOXYCYCLINE HYCLATE 100 MG TABLET PO SCH ×2 (09:58→18:25)
[2023-06-29] MEDS: LISINOPRIL 10 MG TABLET PO SCH (09:59)
[2023-06-29] MEDS: ASCORBIC ACID 500 MG TABLET (FP) PO SCH ×2 (12:42→21:10)
[2023-06-29] MEDS: THIAMINE HCL 100 MG TABLET (FP) PO SCH (21:10)
[2023-06-29] MEDS: MELATONIN 5 MG TABLETS PO SCH (21:10)
[2023-06-29] MEDS: MIRTAZAPINE 15 MG TABLET (FP) PO SCH (21:11)
[2023-06-29] MEDS: LIDOCAINE PATCH REMOVAL MC SCH (21:14)
[2023-06-30] MEDS: BUPRENORPHINE/NALOXONE 8 MG/2 MG FILM PACKET SL SCH ×3 (06:27→21:12)
[2023-06-30] MEDS: BACLOFEN 10 MG TABLET (FP) PO SCH ×3 (06:27→21:12)
[2023-06-30] MEDS: hydrOXYzine PAMOATE 25 MG CAPSULE (FP) PO PRN ×2 (06:31→13:19)
[2023-06-30] MEDS: ACETAMINOPHEN 325 MG TABLET (FP) PO PRN ×2 (06:31→13:20)
[2023-06-30] MEDS: FERROUS SO4 325 MG TABLET (FP) PO SCH ×3 (07:13→17:19)
[2023-06-30] MEDS ORDERED: ONDANSETRON *ODT* 4 MG TABLET SL PRN (08:53)
[2023-06-30] MEDS: LIDOCAINE 4% PATCH TP SCH (09:45)
[2023-06-30] MEDS: metroNIDAZOLE 250 MG TABLET PO SCH ×2 (09:46→21:12)
[2023-06-30] MEDS: PRENATAL VITAMINS W/ FOLIC ACID TABLET (FP) PO SCH (09:47)
[2023-06-30] MEDS: ASCORBIC ACID 500 MG TABLET (FP) PO SCH ×2 (09:47→21:12)
[2023-06-30] MEDS: PANTOPRAZOLE 20 MG TABLET PO SCH (09:48)
[2023-06-30] MEDS: NICOTINE POLACRILEX 2 MG GUM BUC PRN (18:19)
[2023-06-30] MEDS: LIDOCAINE PATCH REMOVAL MC SCH (21:11)
[2023-06-30] MEDS: THIAMINE HCL 100 MG TABLET (FP) PO SCH (21:12)
[2023-06-30] MEDS: MELATONIN 5 MG TABLETS PO SCH (21:12)
[2023-06-30] MEDS: MIRTAZAPINE 15 MG TABLET (FP) PO SCH (21:13)
[2023-07-01] MEDS: BACLOFEN 10 MG TABLET (FP) PO SCH (06:51)
[2023-07-01] MEDS: BUPRENORPHINE/NALOXONE 8 MG/2 MG FILM PACKET SL SCH (06:51)
[2023-07-01] MEDS: hydrOXYzine PAMOATE 25 MG CAPSULE (FP) PO PRN (06:51)
[2023-07-01] MEDS: ACETAMINOPHEN 325 MG TABLET (FP) PO PRN (06:51)
[2023-07-01] MEDS: FERROUS SO4 325 MG TABLET (FP) PO SCH (07:00)
[2023-07-01 07:15] VITALS: BP 125/82; PULSE 70; TEMP 97.8
[2023-07-01] MEDS: NICOTINE POLACRILEX 2 MG GUM BUC PRN (07:37)
[2023-07-01] MEDS: metroNIDAZOLE 250 MG TABLET PO SCH (10:06)
[2023-07-01] MEDS: ASCORBIC ACID 500 MG TABLET (FP) PO SCH (10:06)
[2023-07-01] MEDS: LIDOCAINE 4% PATCH TP SCH (10:06)
[2023-07-01] MEDS: PRENATAL VITAMINS W/ FOLIC ACID TABLET (FP) PO SCH (10:06)
[2023-07-01] MEDS: PANTOPRAZOLE 20 MG TABLET PO SCH (10:06)
== END 2023-07-01 10:15 | disposition left against medical advice (07) | DRG 770 ==
LOC: YASAS 09:05 → Y5N 16:37
PROVIDERS: ADMIT Allergy & Immunology; ATTEND Psychiatry & Neurology Pain Medicine
PROC: HZ42ZZZ Group Counseling for Substance Abuse Treatment, Cognitive-Behavioral (ICD-10-PCS; principal; 2023-06-21)
DX: F14.20 Cocaine dependence, uncomplicated (principal); F11.20 Opioid dependence, uncomplicated; F17.210 Nicotine dependence, cigarettes, uncomplicated; F19.282 Other psychoactive substance dependence with psychoactive substance-induced sleep disorder; F19.280 Other psychoactive substance dependence with psychoactive substance-induced anxiety disorder; D50.0 Iron deficiency anemia secondary to blood loss (chronic); I10 Essential (primary) hypertension; L93.0 Discoid lupus erythematosus; K21.9 Gastro-esophageal reflux disease without esophagitis; M75.51 Bursitis of right shoulder; M54.50 Low back pain, unspecified; G89.29 Other chronic pain; M06.9 Rheumatoid arthritis, unspecified; N39.0 Urinary tract infection, site not specified; B95.1 Streptococcus, group B, as the cause of diseases classified elsewhere; F91.8 Other conduct disorders; Z91.199 Patient's noncompliance with other medical treatment and regimen due to unspecified reason; Z88.0 Allergy status to penicillin; Z88.6 Allergy status to analgesic agent; Z91.041 Radiographic dye allergy status
CPT/HCPCS: 36415; 80053; 80307; 81003; 81025; 85027; 86780; 86803; 87077; 87086; 87491; 87591; 87635; 87661; J0475; Q0162

== ENCOUNTER 2023-07-20 15:20 | Inpatient (IN) | payer OTHER ==
[2023-07-20 15:36] VITALS: BMI 19.1
[2023-07-20] MEDS ORDERED: ACETAMINOPHEN 325 MG TABLET (FP) PO ONE (16:57)
[2023-07-20] MEDS ORDERED: ACETAMINOPHEN 325 MG TABLET (FP) ONE (17:27)
[2023-07-20] MEDS ORDERED: GABAPENTIN 100 MG CAPSULE PO ONE (17:51)
[2023-07-20] MEDS ORDERED: GABAPENTIN 100 MG CAPSULE ONE (19:27)
[2023-07-20 21:03] LABS: BASO % 1.1 % (0-2.0); EOS % 2.2 % (0-4.5); HEMATOCRIT 29.4 % (32.4-45.2); HEMOGLOBIN 9.1 GM/dL (10.7-15.3); LYMPH % 15.8 % (8-40); MCH 21.7 pg (25.7-33.7); MCHC 31.1 g/dl (32.0-36.0); MEAN CELL VOLUME 69.8 fl (80-96); MEAN PLT VOLUME 6.6 fl (7.5-11.1); MONO % 11.3 % (3.8-10.2); NEUT % 69.6 % (42.8-82.8); PLATELET COUNT 389 10^3/uL (134-434); RBC 4.21 M/mm3 (3.60-5.2); RDW 23.3 % (11.6-15.6); WHITE BLOOD COUNT 10.9 K/mm3 (4.0-10.0)
[2023-07-20] MEDS ORDERED: SODIUM CHLORIDE 0.9% 500 ML INFUS.BAG IV ONE (21:17)
[2023-07-20 21:22] LABS: POTASSIUM 3.3 mmol/L (3.5-5.1)
[2023-07-20 21:25] LABS: BLOOD UREA NITROGEN 10.4 mg/dL (7-18); CALCIUM 8.9 mg/dL (8.5-10.1)
[2023-07-20 21:29] LABS: BILIRUBIN,TOTAL 0.7 mg/dL (0.2-1); CREATININE 0.6 mg/dL (0.55-1.3)
[2023-07-20] MEDS ORDERED: MAGNESIUM SULF 50% (8.12 MEQ/2 ML-1 GM VIAL) IVPB ONE (21:42)
[2023-07-20] MEDS ORDERED: POTASSIUM CHLORIDE TABS 20 MEQ TABLET.ER (FP) PO ONE ×2 (21:42→21:55)
[2023-07-20] MEDS ORDERED: MAGNESIUM SULFATE IN WATER 2 GM/50 ML IVPB IVPB ONE (21:49)
[2023-07-20 22:03] LABS: ANISOCYTOSIS 2+; HELMET CELLS 1+; MACROCYTOSIS 0
[2023-07-21] MEDS ORDERED: ACETAMINOPHEN 1000 MG/100 ML BAG IVPB ONE (00:26)
[2023-07-21] MEDS ORDERED: morphine SULFATE 4 MG/ML VIAL ONE (00:32)
[2023-07-21] MEDS ORDERED: ACETAMINOPHEN INJECTION 100 ML IVPB ONE ×2 (00:32→15:16)
[2023-07-21] MEDS ORDERED: MELATONIN 5 MG TABLETS ONE (04:49)
[2023-07-21] MEDS ORDERED: KETOROLAC TROMETHAMINE 30 MG/1 ML VIAL IVPUSH ONE ×2 (06:27)
[2023-07-21] MEDS ORDERED: ONDANSETRON 4 MG/2 ML VIAL IVPUSH PRN (06:32)
[2023-07-21] MEDS ORDERED: ONDANSETRON 4 MG/2 ML VIAL IVPUSH ONE (06:32)
[2023-07-21] MEDS ORDERED: ONDANSETRON 4 MG/2 ML VIAL ONE (07:33)
[2023-07-21] MEDS ORDERED: KETOROLAC TROMETHAMINE 30 MG/1 ML VIAL ONE (07:33)
[2023-07-21] MEDS: SODIUM CHLORIDE 1,000 ML IV SCH ×2 (08:26→21:40)
[2023-07-21] MEDS ORDERED: BUPRENORPHINE/NALOXONE 8 MG/2 MG FILM PACKET ONE (09:32)
[2023-07-21] MEDS ORDERED: BUPRENORPHINE 8 MG TAB.SUBL SL ONE (10:00)
[2023-07-21 15:17] LABS: HEMATOCRIT 27.5 % (32.4-45.2); HEMOGLOBIN 8.3 GM/dL (10.7-15.3); LYMPH % 13.6 % (8-40); MCH 21.3 pg (25.7-33.7); MEAN PLT VOLUME 6.9 fl (7.5-11.1); MONO % 10.6 % (3.8-10.2); NEUT % 69.8 % (42.8-82.8); PLATELET COUNT 232 10^3/uL (134-434); RBC 3.88 M/mm3 (3.60-5.2); RDW 23.1 % (11.6-15.6)
[2023-07-21] MEDS: ACETAMINOPHEN 1000 MG/100 ML BAG IVPB PRN ×2 (15:17→21:41)
[2023-07-21] MEDS ORDERED: KETOROLAC TROMETHAMINE 15 MG/ML VIAL ONE (15:27)
[2023-07-21] MEDS: KETOROLAC TROMETHAMINE 15 MG/ML VIAL IVPUSH PRN (15:30)
[2023-07-21] MEDS: MELATONIN 1 MG TABLET PO SCH (21:41)
[2023-07-21] MEDS: morphine SULFATE 4 MG/ML VIAL IVPUSH PRN (22:20)
[2023-07-22] MEDS: BUPRENORPHINE/NALOXONE 8 MG/2 MG FILM PACKET SL SCH ×4 (00:44→21:13)
[2023-07-22] MEDS ORDERED: ACETAMINOPHEN 1000 MG/100 ML BAG IVPB PRN ×2 (04:59→08:08)
[2023-07-22] MEDS: SODIUM CHLORIDE 1,000 ML IV SCH (06:04)
[2023-07-22] MEDS: KETOROLAC TROMETHAMINE 15 MG/ML VIAL IVPUSH PRN ×3 (06:13→18:36)
[2023-07-22 08:39] LABS: METHADONE, UR NEGATIVE (NEGATIVE); URINE BARBITURATES NEGATIVE (NEGATIVE); URINE BENZODIAZEPINES NEGATIVE (NEGATIVE)
[2023-07-22 08:42] LABS: EPI CELLS 36 /uL (0-25.1); HYALINE CASTS 1 /uL (0-3.1); PH,URINE 5.5 (5.0-8.0); URINE APPEARANCE CLOUDY; URINE BACTERIA 208 /uL (0-1359); URINE BILIRUBIN NEGATIVE (NEGATIVE); URINE COLOR YELLOW; URINE GLUCOSE (UA) NEGATIVE (NEGATIVE); URINE KETONE TRACE (NEGATIVE); URINE LEUK ESTERASE NEGATIVE (NEGATIVE); URINE NITRITE NEGATIVE (NEGATIVE); URINE PROTEIN NEGATIVE (NEGATIVE); URINE RBC 82 /uL (0-23.9); URINE WBC 12 /uL (0-25.8)
[2023-07-22 08:44] LABS: COCAINE, UR POSITIVE (NEGATIVE); OPIATES, URI POSITIVE (NEGATIVE); PHENCYCLIDINE,URINE POSITIVE (NEGATIVE); URINE AMPHETAMINES NEGATIVE (NEGATIVE)
[2023-07-22] MEDS: ACETAMINOPHEN 325 MG TABLET (FP) PO SCH ×2 (14:43→20:59)
[2023-07-22] MEDS: morphine SULFATE 4 MG/ML VIAL IVPUSH PRN (19:57)
[2023-07-22] MEDS: NORTRIPTYLINE HCL 25 MG CAPSULE PO SCH (21:13)
[2023-07-22] MEDS: MELATONIN 1 MG TABLET PO SCH (21:13)
[2023-07-23] MEDS: ACETAMINOPHEN 325 MG TABLET (FP) PO SCH ×4 (01:43→21:17)
[2023-07-23] MEDS: KETOROLAC TROMETHAMINE 15 MG/ML VIAL IVPUSH PRN ×3 (02:59→21:15)
[2023-07-23] MEDS: morphine SULFATE 4 MG/ML VIAL IVPUSH PRN ×2 (05:56→13:36)
[2023-07-23] MEDS: BUPRENORPHINE/NALOXONE 8 MG/2 MG FILM PACKET SL SCH ×3 (05:59→21:14)
[2023-07-23 08:29] LABS: BASO % 0.8 % (0-2.0); EOS % 7.4 % (0-4.5); HEMATOCRIT 24.1 % (32.4-45.2); HEMOGLOBIN 7.5 GM/dL (10.7-15.3); LYMPH % 20.2 % (8-40); MCH 21.9 pg (25.7-33.7); MCHC 31.1 g/dl (32.0-36.0); MEAN CELL VOLUME 70.4 fl (80-96); MEAN PLT VOLUME 7.2 fl (7.5-11.1); MONO % 9.7 % (3.8-10.2); NEUT % 61.9 % (42.8-82.8); PLATELET COUNT 277 10^3/uL (134-434); RBC 3.43 M/mm3 (3.60-5.2); RDW 23.5 % (11.6-15.6)
[2023-07-23 08:32] LABS: POTASSIUM 4.3 mmol/L (3.5-5.1)
[2023-07-23 08:35] LABS: CALCIUM 7.7 mg/dL (8.5-10.1)
[2023-07-23 08:36] LABS: BLOOD UREA NITROGEN 14.8 mg/dL (7-18); MAGNESIUM 1.7 mg/dL (1.8-2.4)
[2023-07-23 08:39] LABS: CREATININE 0.5 mg/dL (0.55-1.3); PHOSPHOROUS 4.8 mg/dL (2.5-4.9)
[2023-07-23 08:40] LABS: BILIRUBIN,TOTAL 0.2 mg/dL (0.2-1); TOT PROT 5.6 g/dl (6.4-8.2)
[2023-07-23 08:51] LABS: ALBUMIN 2.1 g/dl (3.4-5.0)
[2023-07-23] MEDS: ENOXAPARIN NA (PORCINE) 40 MG/0.4 ML DISP.SYRIN SQ SCH (09:10)
[2023-07-23] MEDS: SODIUM CHLORIDE 1,000 ML IV SCH (09:12)
[2023-07-23] MEDS ORDERED: NICOTINE POLACRILEX 2 MG LOZENGE BC SCH (12:30)
[2023-07-23] MEDS: NICOTINE 14 MG/24 HOURS TOPICAL PATCH TD SCH (13:11)
[2023-07-23] MEDS ORDERED: NICOTINE POLACRILEX 2 MG LOZENGE BC PRN (14:15)
[2023-07-23 19:02] VITALS: RESP 18
[2023-07-23] MEDS: MELATONIN 1 MG TABLET PO SCH (21:15)
[2023-07-23] MEDS: NORTRIPTYLINE HCL 25 MG CAPSULE PO SCH (21:15)
[2023-07-24] MEDS: ACETAMINOPHEN 325 MG TABLET (FP) PO SCH ×4 (01:55→21:22)
[2023-07-24] MEDS: BUPRENORPHINE/NALOXONE 8 MG/2 MG FILM PACKET SL SCH ×3 (05:33→21:23)
[2023-07-24] MEDS: KETOROLAC TROMETHAMINE 15 MG/ML VIAL IVPUSH PRN ×2 (05:46→12:29)
[2023-07-24 08:38] LABS: EOS % 8.5 % (0-4.5); HEMATOCRIT 24.4 % (32.4-45.2); HEMOGLOBIN 7.6 GM/dL (10.7-15.3); LYMPH % 21.2 % (8-40); MEAN PLT VOLUME 7.1 fl (7.5-11.1); NEUT % 59.3 % (42.8-82.8); PLATELET COUNT 269 10^3/uL (134-434); RBC 3.44 M/mm3 (3.60-5.2); RDW 25.1 % (11.6-15.6)
[2023-07-24 08:56] LABS: POTASSIUM 4.3 mmol/L (3.5-5.1)
[2023-07-24 08:57] LABS: CALCIUM 7.8 mg/dL (8.5-10.1)
[2023-07-24 08:58] LABS: BLOOD UREA NITROGEN 16.1 mg/dL (7-18)
[2023-07-24 09:01] LABS: CREATININE 0.5 mg/dL (0.55-1.3)
[2023-07-24 10:01] LABS: ANISOCYTOSIS 2+; MACROCYTOSIS 0; OVALOCYTE 1+
[2023-07-24] MEDS: ENOXAPARIN NA (PORCINE) 40 MG/0.4 ML DISP.SYRIN SQ SCH (12:28)
[2023-07-24] MEDS: NICOTINE 14 MG/24 HOURS TOPICAL PATCH TD SCH (13:49)
[2023-07-24] MEDS ORDERED: LORazepam 1 MG TABLET PO ONE (15:00)
[2023-07-24 15:07] LABS: METHANOL BLOOD <.010 g/dL (0.000-0.010)
[2023-07-24] MEDS: MELATONIN 1 MG TABLET PO SCH (21:21)
[2023-07-24] MEDS: NORTRIPTYLINE HCL 25 MG CAPSULE PO SCH (21:22)
[2023-07-25] MEDS: KETOROLAC TROMETHAMINE 15 MG/ML VIAL IVPUSH PRN ×3 (00:42→23:19)
[2023-07-25] MEDS: ACETAMINOPHEN 325 MG TABLET (FP) PO SCH ×5 (01:48→21:35)
[2023-07-25] MEDS: BUPRENORPHINE/NALOXONE 8 MG/2 MG FILM PACKET SL SCH ×3 (05:09→21:35)
[2023-07-25] MEDS: NICOTINE 14 MG/24 HOURS TOPICAL PATCH TD SCH (10:50)
[2023-07-25] MEDS: ENOXAPARIN NA (PORCINE) 40 MG/0.4 ML DISP.SYRIN SQ SCH (10:50)
[2023-07-25] MEDS ORDERED: NICOTINE POLACRILEX 4 MG LOZENGE BC PRN (14:19)
[2023-07-25] MEDS ORDERED: LORazepam 2 MG/ML SDV VIAL IVPUSH PRN (14:21)
[2023-07-25] MEDS: BACLOFEN 10 MG TABLET (FP) PO SCH ×2 (14:56→21:35)
[2023-07-25] MEDS: MELATONIN 1 MG TABLET PO SCH (21:35)
[2023-07-25] MEDS: NORTRIPTYLINE HCL 25 MG CAPSULE PO SCH (22:54)
[2023-07-26] MEDS: ACETAMINOPHEN 325 MG TABLET (FP) PO SCH ×5 (02:29→20:04)
[2023-07-26] MEDS: BACLOFEN 10 MG TABLET (FP) PO SCH ×3 (05:49→22:44)
[2023-07-26] MEDS: BUPRENORPHINE/NALOXONE 8 MG/2 MG FILM PACKET SL SCH ×3 (05:49→22:44)
[2023-07-26 09:23] LABS: BASO % 1.7 % (0-2.0); EOS % 7.5 % (0-4.5); HEMATOCRIT 25.2 % (32.4-45.2); HEMOGLOBIN 7.7 GM/dL (10.7-15.3); LYMPH % 27.4 % (8-40); MCH 21.7 pg (25.7-33.7); MCHC 30.6 g/dl (32.0-36.0); MEAN CELL VOLUME 70.9 fl (80-96); MEAN PLT VOLUME 7.1 fl (7.5-11.1); MONO % 12.5 % (3.8-10.2); NEUT % 50.9 % (42.8-82.8); PLATELET COUNT 310 10^3/uL (134-434); RBC 3.56 M/mm3 (3.60-5.2); RDW 24.9 % (11.6-15.6); WHITE BLOOD COUNT 4.5 K/mm3 (4.0-10.0)
[2023-07-26 09:30] LABS: POTASSIUM 4.6 mmol/L (3.5-5.1)
[2023-07-26 09:41] LABS: BLOOD UREA NITROGEN 20.9 mg/dL (7-18)
[2023-07-26 09:45] LABS: CREATININE 0.5 mg/dL (0.55-1.3)
[2023-07-26 09:46] LABS: BILIRUBIN,TOTAL 0.4 mg/dL (0.2-1); TOT PROT 5.9 g/dl (6.4-8.2)
[2023-07-26 09:48] LABS: ALBUMIN 2.1 g/dl (3.4-5.0)
[2023-07-26] MEDS: ENOXAPARIN NA (PORCINE) 40 MG/0.4 ML DISP.SYRIN SQ SCH (09:58)
[2023-07-26] MEDS: KETOROLAC TROMETHAMINE 15 MG/ML VIAL IVPUSH PRN ×2 (10:03→18:44)
[2023-07-26] MEDS ORDERED: LORazepam 2 MG/ML SDV VIAL IVPUSH ONE (20:00)
[2023-07-26 21:11] LABS: CYCLIC CITRULLINE PEPTIDE AB 10 units (0-19)
[2023-07-26] MEDS: NORTRIPTYLINE HCL 25 MG CAPSULE PO SCH (22:44)
[2023-07-26] MEDS: MELATONIN 1 MG TABLET PO SCH (22:44)
[2023-07-27] MEDS: ACETAMINOPHEN 325 MG TABLET (FP) PO SCH ×4 (03:18→22:12)
[2023-07-27] MEDS: BACLOFEN 10 MG TABLET (FP) PO SCH ×3 (05:35→22:13)
[2023-07-27] MEDS: BUPRENORPHINE/NALOXONE 8 MG/2 MG FILM PACKET SL SCH ×3 (05:35→23:42)
[2023-07-27] MEDS: KETOROLAC TROMETHAMINE 15 MG/ML VIAL IVPUSH PRN (05:38)
[2023-07-27] MEDS: ENOXAPARIN NA (PORCINE) 40 MG/0.4 ML DISP.SYRIN SQ SCH (09:25)
[2023-07-27 09:35] LABS: BASO % 1.2 % (0-2.0); EOS % 6.2 % (0-4.5); HEMATOCRIT 24.1 % (32.4-45.2); HEMOGLOBIN 7.6 GM/dL (10.7-15.3); LYMPH % 21.6 % (8-40); MCH 22.5 pg (25.7-33.7); MCHC 31.4 g/dl (32.0-36.0); MEAN CELL VOLUME 71.5 fl (80-96); MEAN PLT VOLUME 7.4 fl (7.5-11.1); MONO % 11.6 % (3.8-10.2); NEUT % 59.4 % (42.8-82.8); PLATELET COUNT 357 10^3/uL (134-434); RBC 3.38 M/mm3 (3.60-5.2); RDW 25.8 % (11.6-15.6); WHITE BLOOD COUNT 6.5 K/mm3 (4.0-10.0)
[2023-07-27 09:48] LABS: POTASSIUM 4.8 mmol/L (3.5-5.1)
[2023-07-27 09:51] LABS: ALBUMIN 2.3 g/dl (3.4-5.0); BLOOD UREA NITROGEN 14.6 mg/dL (7-18)
[2023-07-27 09:54] LABS: CREATININE 0.6 mg/dL (0.55-1.3)
[2023-07-27 09:55] LABS: BILIRUBIN,TOTAL 0.2 mg/dL (0.2-1); TOT PROT 6.2 g/dl (6.4-8.2)
[2023-07-27 12:03] LABS: ANISOCYTOSIS 2+; MACROCYTOSIS 0; OVALOCYTE 2+; TARGET CELLS 2+; TEAR DROP CELLS 2+
[2023-07-27 20:39] LABS: PH,URINE 8.5 (5.0-8.0); URINE APPEARANCE CLEAR; URINE BILIRUBIN NEGATIVE (NEGATIVE); URINE COLOR YELLOW; URINE GLUCOSE (UA) NEGATIVE (NEGATIVE); URINE KETONE NEGATIVE (NEGATIVE); URINE LEUK ESTERASE NEGATIVE (NEGATIVE); URINE NITRITE NEGATIVE (NEGATIVE); URINE PROTEIN NEGATIVE (NEGATIVE); URINE UROBILINOGEN 0.2 mg/dL (0.2-1.0)
[2023-07-27] MEDS: NORTRIPTYLINE HCL 25 MG CAPSULE PO SCH (22:13)
[2023-07-27] MEDS: MELATONIN 1 MG TABLET PO SCH (22:13)
[2023-07-28] MEDS: ACETAMINOPHEN 325 MG TABLET (FP) PO SCH ×4 (03:47→21:58)
[2023-07-28] MEDS: BACLOFEN 10 MG TABLET (FP) PO SCH ×3 (05:42→21:58)
[2023-07-28] MEDS: BUPRENORPHINE/NALOXONE 8 MG/2 MG FILM PACKET SL SCH ×3 (05:42→21:59)
[2023-07-28] MEDS: ENOXAPARIN NA (PORCINE) 40 MG/0.4 ML DISP.SYRIN SQ SCH (09:25)
[2023-07-28 09:35] LABS: BASO % 1.3 % (0-2.0); EOS % 5.8 % (0-4.5); HEMATOCRIT 24.6 % (32.4-45.2); HEMOGLOBIN 7.7 GM/dL (10.7-15.3); LYMPH % 23.8 % (8-40); MCH 22.6 pg (25.7-33.7); MCHC 31.5 g/dl (32.0-36.0); MEAN CELL VOLUME 71.6 fl (80-96); MEAN PLT VOLUME 7.3 fl (7.5-11.1); MONO % 9.8 % (3.8-10.2); NEUT % 59.3 % (42.8-82.8); PLATELET COUNT 418 10^3/uL (134-434); RBC 3.43 M/mm3 (3.60-5.2); WHITE BLOOD COUNT 6.6 K/mm3 (4.0-10.0)
[2023-07-28 09:38] LABS: POTASSIUM 4.1 mmol/L (3.5-5.1)
[2023-07-28 09:40] LABS: BLOOD UREA NITROGEN 13.2 mg/dL (7-18); CALCIUM 8.9 mg/dL (8.5-10.1)
[2023-07-28 09:44] LABS: CREATININE 0.5 mg/dL (0.55-1.3)
[2023-07-28 11:41] LABS: RETICULOCYTES 1.16 % (0.5-1.5)
[2023-07-28] MEDS: KETOROLAC TROMETHAMINE 15 MG/ML VIAL IVPUSH PRN (20:13)
[2023-07-28] MEDS: MELATONIN 1 MG TABLET PO SCH (21:58)
[2023-07-28] MEDS: NORTRIPTYLINE HCL 25 MG CAPSULE PO SCH (22:11)
[2023-07-29] MEDS: ACETAMINOPHEN 325 MG TABLET (FP) PO SCH ×4 (04:22→21:23)
[2023-07-29] MEDS: BACLOFEN 10 MG TABLET (FP) PO SCH ×3 (06:27→21:25)
[2023-07-29] MEDS: ENOXAPARIN NA (PORCINE) 40 MG/0.4 ML DISP.SYRIN SQ SCH (09:03)
[2023-07-29] MEDS: KETOROLAC TROMETHAMINE 15 MG/ML VIAL IVPUSH PRN (09:03)
[2023-07-29] MEDS ORDERED: LORazepam 1 MG TABLET PO ONE (10:28)
[2023-07-29] MEDS: MELATONIN 1 MG TABLET PO SCH (21:25)
[2023-07-29] MEDS: NORTRIPTYLINE HCL 25 MG CAPSULE PO SCH (21:26)
[2023-07-29] MEDS ORDERED: POLYETHYLENE GLYCOL (HEALTHYLAX) 3350 17 GM PACKET PO SCH (22:00)
[2023-07-29] MEDS ORDERED: SENNOSIDES 8.8 MG/5 ML SYRUP PO SCH (22:00)
[2023-07-29 22:56] VITALS: BP 139/65; PULSE 95; TEMP 99.1
[2023-07-30] MEDS: ACETAMINOPHEN 325 MG TABLET (FP) PO SCH ×2 (05:27→08:29)
[2023-07-30] MEDS: BACLOFEN 10 MG TABLET (FP) PO SCH (05:36)
== END 2023-07-30 10:42 | disposition home or self-care (01) | DRG 347 ==
LOC: JER 15:20 → UNDOADMOB 23:25 → INTOOBSV 23:25 → JERBED 23:25 → J7W 07-21 17:34 → JERBED 07-21 17:34 → J7W 07-23 09:48 → OBSVTOIN 07-26 10:44
PROVIDERS: ADMIT Internal Medicine; ATTEND Psychiatry & Neurology Pain Medicine
DX: M46.1 Sacroiliitis, not elsewhere classified (principal); M06.9 Rheumatoid arthritis, unspecified; M79.7 Fibromyalgia; R50.9 Fever, unspecified; F11.20 Opioid dependence, uncomplicated; D64.9 Anemia, unspecified; F41.8 Other specified anxiety disorders; F43.10 Post-traumatic stress disorder, unspecified; M75.52 Bursitis of left shoulder; M75.51 Bursitis of right shoulder; M71.562 Other bursitis, not elsewhere classified, left knee; M71.561 Other bursitis, not elsewhere classified, right knee; L93.0 Discoid lupus erythematosus; F19.90 Other psychoactive substance use, unspecified, uncomplicated; M79.604 Pain in right leg; R91.1 Solitary pulmonary nodule; F14.20 Cocaine dependence, uncomplicated; F17.210 Nicotine dependence, cigarettes, uncomplicated; E44.0 Moderate protein-calorie malnutrition; Z68.1 Body mass index [BMI] 19.9 or less, adult; Z59.00 Homelessness unspecified
CPT/HCPCS: 0241U-QW; 36415; 71045-TC-FY; 72128-TC; 72131-TC; 72149-TC; 72170-TC-FY; 73721-RT-TC; 80048; 80053; 80307; 81003; 82550; 82607; 82728; 82746; 83540; 83550; 83735; 84100; 84443; 84703; 85025; 85045; 86038; 86140; 86160; 86162; 86200; 86431; 87040; 87086; 93970-TC; 97116-GP; 97162-GP; 99285-25; G0378; J0131; J0475

== ENCOUNTER 2023-08-19 10:23 | Inpatient (IN) | payer OTHER ==
[2023-08-19 11:45] VITALS: BMI 27.1
[2023-08-19] MEDS ORDERED: ONDANSETRON *ODT* 4 MG TABLET SL PRN (12:31)
[2023-08-19] MEDS ORDERED: MAG HYDROX/AL HYDROX/SIMETH 30 ML UNIT-DOSE CUP PO PRN (12:31)
[2023-08-19] MEDS ORDERED: BENZOCAINE/MENTHOL (CHLORASEPTIC ) LOZENGE MM PRN (12:31)
[2023-08-19] MEDS ORDERED: NALOXONE HCL 0.4 MG/ML VIAL IM PRN (12:31)
[2023-08-19] MEDS ORDERED: BENZONATATE 200 MG CAPSULE PO PRN (12:31)
[2023-08-19] MEDS ORDERED: POLYETHYLENE GLYCOL (HEALTHYLAX) 3350 17 GM PACKET PO PRN (12:31)
[2023-08-19] MEDS ORDERED: NALOXONE HCL (KLOXXADO) 8 MG SPRAY NS PRN (12:31)
[2023-08-19] MEDS ORDERED: guaiFENesin 600 MG TABLET.ER (FP) PO PRN (12:31)
[2023-08-19] MEDS ORDERED: cloNIDine HCL 0.1 MG TABLET PO ONE (12:31)
[2023-08-19] MEDS ORDERED: DICYCLOMINE HCL 10 MG CAPSULE PO PRN (12:31)
[2023-08-19] MEDS ORDERED: BISMUTH SUBSALICYLATE 262 MG/15 ML BTL PO PRN (12:31)
[2023-08-19] MEDS ORDERED: BUPRENORPHINE HCL 150 MCG, BUPRENORPHINE HCL 75 MCG BC ONE (12:31)
[2023-08-19] MEDS ORDERED: MAGNESIUM HYDROX 2400MG/30ML ORAL SUSPENSION 30 ML CUP PO PRN (12:31)
[2023-08-19] MEDS ORDERED: BUPRENORPHINE HCL 150 MCG, BUPRENORPHINE HCL 75 MCG BC PRN (12:31)
[2023-08-19] MEDS ORDERED: BUPRENORPHINE HCL 150 MCG FILM BC ONE (13:55)
[2023-08-19] MEDS ORDERED: cloNIDine HCL 0.1 MG TABLET ONE (13:56)
[2023-08-19] MEDS ORDERED: BUPRENORPHINE HCL 75 MCG FILM BC ONE (13:56)
[2023-08-19] MEDS ORDERED: ALBUTEROL SO4 HFA INHALER IH PRN (15:49)
[2023-08-19] MEDS: diazePAM 5 MG TABLET PO PRN ×2 (17:33→23:38)
[2023-08-19] MEDS: FERROUS SO4 325 MG TABLET (FP) PO SCH (17:33)
[2023-08-19] MEDS: MELATONIN 5 MG TABLETS PO SCH (22:13)
[2023-08-19] MEDS: THIAMINE HCL 100 MG TABLET (FP) PO SCH (22:13)
[2023-08-19] MEDS: ACETAMINOPHEN 325 MG TABLET (FP) PO PRN (23:38)
[2023-08-20] MEDS ORDERED: BUPRENORPHINE HCL 150 MCG, BUPRENORPHINE HCL 75 MCG BC PRN
[2023-08-20] MEDS ORDERED: BUPRENORPHINE HCL 150 MCG, BUPRENORPHINE HCL 75 MCG BC SCH (06:00)
[2023-08-20] MEDS: FERROUS SO4 325 MG TABLET (FP) PO SCH ×3 (07:01→17:15)
[2023-08-20] MEDS ORDERED: LISINOPRIL 10 MG TABLET PO SCH (10:00)
[2023-08-20] MEDS: PRENATAL VITAMINS W/ FOLIC ACID TABLET (FP) PO SCH (10:39)
[2023-08-20] MEDS: HYDROCHLOROTHIAZIDE 12.5 MG CAPSULE (FP) PO SCH (10:40)
[2023-08-20] MEDS: NICOTINE 14 MG/24 HOURS TOPICAL PATCH TD SCH (10:42)
[2023-08-20] MEDS: diazePAM 5 MG TABLET PO PRN ×3 (10:44→22:17)
[2023-08-20 10:59] LABS: HEMOGLOBIN 8.8 GM/dL (10.7-15.3); MCH 21.3 pg (25.7-33.7); MCHC 30.4 g/dl (32.0-36.0); MEAN CELL VOLUME 70.1 fl (80-96); MEAN PLT VOLUME 7.9 fl (7.5-11.1); PLATELET COUNT 346 10^3/uL (134-434); RBC 4.14 M/mm3 (3.60-5.2); RDW 24.8 % (11.6-15.6); WHITE BLOOD COUNT 2.2 K/mm3 (4.0-10.0)
[2023-08-20 11:04] LABS: POTASSIUM 4.2 mmol/L (3.5-5.1)
[2023-08-20 11:16] LABS: ALBUMIN 2.9 g/dl (3.4-5.0); BLOOD UREA NITROGEN 12.1 mg/dL (7-18); CALCIUM 8.7 mg/dL (8.5-10.1)
[2023-08-20 11:19] LABS: CREATININE 0.6 mg/dL (0.55-1.3)
[2023-08-20 11:20] LABS: BILIRUBIN,TOTAL 0.6 mg/dL (0.2-1); TOT PROT 7.2 g/dl (6.4-8.2)
[2023-08-20] MEDS: METHOCARBAMOL 500 MG TABLET PO PRN ×2 (11:20→17:39)
[2023-08-20] MEDS: LOPERAMIDE HCL 2 MG CAPSULE PO PRN (11:21)
[2023-08-20] MEDS: NICOTINE POLACRILEX 2 MG GUM BUC PRN ×3 (13:30→22:34)
[2023-08-20] MEDS: ACETAMINOPHEN 325 MG TABLET (FP) PO PRN ×2 (15:31→22:20)
[2023-08-20] MEDS: hydrOXYzine PAMOATE 25 MG CAPSULE (FP) PO PRN (15:31)
[2023-08-20] MEDS: COLLOIDAL OATMEAL 1 BAR EACH TP PRN (22:16)
[2023-08-20] MEDS: THIAMINE HCL 100 MG TABLET (FP) PO SCH (22:16)
[2023-08-20] MEDS: MELATONIN 5 MG TABLETS PO SCH (22:16)
[2023-08-20] MEDS: MIRTAZAPINE 15 MG TABLET (FP) PO SCH (22:18)
[2023-08-21] MEDS: ACETAMINOPHEN 325 MG TABLET (FP) PO PRN ×2 (05:45→12:02)
[2023-08-21] MEDS: diazePAM 5 MG TABLET PO PRN ×2 (05:46→11:59)
[2023-08-21] MEDS ORDERED: BUPRENORPHINE HCL 450 MCG FILM BC SCH (06:00)
[2023-08-21] MEDS: FERROUS SO4 325 MG TABLET (FP) PO SCH ×3 (07:10→17:36)
[2023-08-21] MEDS ORDERED: methaDONE HCL 10 MG TABLET (FOR DETOX USE ONLY) PO ONE (10:00)
[2023-08-21] MEDS: NICOTINE 14 MG/24 HOURS TOPICAL PATCH TD SCH (10:07)
[2023-08-21] MEDS: LISINOPRIL 20 MG TABLET PO SCH (10:07)
[2023-08-21] MEDS: PRENATAL VITAMINS W/ FOLIC ACID TABLET (FP) PO SCH (10:13)
[2023-08-21] MEDS: HYDROCHLOROTHIAZIDE 12.5 MG CAPSULE (FP) PO SCH (10:13)
[2023-08-21] MEDS: METHOCARBAMOL 500 MG TABLET PO PRN (17:36)
[2023-08-21] MEDS: hydrOXYzine PAMOATE 25 MG CAPSULE (FP) PO PRN (17:36)
[2023-08-21] MEDS: MELATONIN 5 MG TABLETS PO SCH (22:25)
[2023-08-21] MEDS: THIAMINE HCL 100 MG TABLET (FP) PO SCH (22:25)
[2023-08-21] MEDS: MIRTAZAPINE 15 MG TABLET (FP) PO SCH (22:25)
[2023-08-21] MEDS: cloNIDine HCL 0.1 MG TABLET PO PRN (22:26)
[2023-08-22] MEDS: METHOCARBAMOL 500 MG TABLET PO PRN ×3 (05:50→17:43)
[2023-08-22] MEDS: cloNIDine HCL 0.1 MG TABLET PO PRN (05:51)
[2023-08-22] MEDS: ACETAMINOPHEN 325 MG TABLET (FP) PO PRN ×3 (05:55→22:25)
[2023-08-22] MEDS: NICOTINE POLACRILEX 2 MG GUM BUC PRN ×3 (05:59→17:49)
[2023-08-22] MEDS ORDERED: BUPRENORPHINE/NALOXONE 4 MG/1 MG FILM PACKET SL SCH (06:00)
[2023-08-22] MEDS: FERROUS SO4 325 MG TABLET (FP) PO SCH ×3 (07:09→17:43)
[2023-08-22] MEDS: hydrOXYzine PAMOATE 25 MG CAPSULE (FP) PO PRN ×2 (10:11→17:43)
[2023-08-22] MEDS: NICOTINE 14 MG/24 HOURS TOPICAL PATCH TD SCH (10:12)
[2023-08-22] MEDS: HYDROCHLOROTHIAZIDE 12.5 MG CAPSULE (FP) PO SCH (10:12)
[2023-08-22] MEDS: LISINOPRIL 20 MG TABLET PO SCH (10:12)
[2023-08-22] MEDS: PRENATAL VITAMINS W/ FOLIC ACID TABLET (FP) PO SCH (10:14)
[2023-08-22] MEDS ORDERED: LOPERAMIDE HCL 2 MG CAPSULE PO ONE (10:59)
[2023-08-22] MEDS: LOPERAMIDE HCL 2 MG CAPSULE PO PRN (11:13)
[2023-08-22] MEDS: diazePAM 5 MG TABLET PO PRN ×2 (11:49→20:18)
[2023-08-22] MEDS: MIRTAZAPINE 15 MG TABLET (FP) PO SCH (22:22)
[2023-08-22] MEDS: THIAMINE HCL 100 MG TABLET (FP) PO SCH (22:22)
[2023-08-22] MEDS: MELATONIN 5 MG TABLETS PO SCH (22:22)
[2023-08-23] MEDS ORDERED: BUPRENORPHINE/NALOXONE 8 MG/2 MG FILM PACKET SL ONE (06:00)
[2023-08-23] MEDS: FERROUS SO4 325 MG TABLET (FP) PO SCH ×3 (07:26→18:00)
[2023-08-23] MEDS: hydrOXYzine PAMOATE 25 MG CAPSULE (FP) PO PRN (09:09)
[2023-08-23] MEDS: METHOCARBAMOL 500 MG TABLET PO PRN ×2 (09:09→15:18)
[2023-08-23] MEDS ORDERED: methaDONE HCL 10 MG TABLET (FOR DETOX USE ONLY) PO ONE (10:00)
[2023-08-23] MEDS: PRENATAL VITAMINS W/ FOLIC ACID TABLET (FP) PO SCH (10:29)
[2023-08-23] MEDS: HYDROCHLOROTHIAZIDE 12.5 MG CAPSULE (FP) PO SCH (10:29)
[2023-08-23] MEDS: LISINOPRIL 20 MG TABLET PO SCH (10:30)
[2023-08-23] MEDS: NICOTINE POLACRILEX 2 MG GUM BUC PRN (10:31)
[2023-08-23] MEDS: NICOTINE 14 MG/24 HOURS TOPICAL PATCH TD SCH (10:31)
[2023-08-23 11:06] LABS: HEMATOCRIT 22.6 % (32.4-45.2); MCH 21.2 pg (25.7-33.7); MCHC 30.2 g/dl (32.0-36.0); MEAN CELL VOLUME 70.1 fl (80-96); PLATELET COUNT 320 10^3/uL (134-434); RBC 3.23 M/mm3 (3.60-5.2); RDW 24.7 % (11.6-15.6); WHITE BLOOD COUNT 5.2 K/mm3 (4.0-10.0)
[2023-08-23 11:13] LABS: HEMOGLOBIN 6.8 GM/dL (10.7-15.3)
[2023-08-23] MEDS ORDERED: hydrOXYzine PAMOATE 25 MG CAPSULE (FP) PO ONE (11:59)
[2023-08-23 13:15] VITALS: RESP 18
[2023-08-23 14:28] LABS: BASO % 1.8 % (0-2.0); EOS % 4.9 % (0-4.5); HEMATOCRIT 23.9 % (32.4-45.2); LYMPH % 34.3 % (8-40); MCH 20.7 pg (25.7-33.7); MCHC 29.4 g/dl (32.0-36.0); MEAN CELL VOLUME 70.4 fl (80-96); MEAN PLT VOLUME 7.2 fl (7.5-11.1); MONO % 10.6 % (3.8-10.2); NEUT % 48.4 % (42.8-82.8); PLATELET COUNT 350 10^3/uL (134-434); RBC 3.39 M/mm3 (3.60-5.2); RDW 24.7 % (11.6-15.6); WHITE BLOOD COUNT 5.4 K/mm3 (4.0-10.0)
[2023-08-23 15:11] LABS: ANISOCYTOSIS 2+; MACROCYTOSIS 0
[2023-08-23] MEDS: COLLOIDAL OATMEAL 1 BAR EACH TP PRN (15:50)
[2023-08-23 18:31] VITALS: BP 127/69; PULSE 100; TEMP 98.4
== END 2023-08-23 18:00 | disposition left against medical advice (07) | DRG 770 ==
LOC: YASAS 10:23 → Y6N 14:06
PROVIDERS: ADMIT Allergy & Immunology; ATTEND Surgery
PROC: HZ2ZZZZ Detoxification Services for Substance Abuse Treatment (ICD-10-PCS; principal; 2023-08-19)
DX: F11.23 Opioid dependence with withdrawal (principal); F14.20 Cocaine dependence, uncomplicated; F17.210 Nicotine dependence, cigarettes, uncomplicated; F19.280 Other psychoactive substance dependence with psychoactive substance-induced anxiety disorder; F19.282 Other psychoactive substance dependence with psychoactive substance-induced sleep disorder; D50.9 Iron deficiency anemia, unspecified; I10 Essential (primary) hypertension; Z62.810 Personal history of physical and sexual abuse in childhood; Z28.310 Unvaccinated for COVID-19; Z28.21 Immunization not carried out because of patient refusal; Z88.0 Allergy status to penicillin; Z88.6 Allergy status to analgesic agent; Z91.041 Radiographic dye allergy status; Z56.0 Unemployment, unspecified; Z59.00 Homelessness unspecified
CPT/HCPCS: 36415; 80053; 80307; 81025; 82962; 85025; 85027; 86780; 87635; 87811